=== PATIENT | male | born 1970 | race Caucasian/White ===

== ENCOUNTER 2021-08-18 12:25 | Outpatient (REF) | payer OTHER, SELFPAY ==
[2021-08-18 13:46] LABS: MANUAL DIFF FLAG NO
[2021-08-18 13:50] LABS: Basophils Absolute Auto 0.1 X10*3/uL (0.0-0.2); Basophils Percent Auto 1.1 % (0-2); Eosinophils Absolute Auto 0.2 X10*3/uL (0.0-0.4); Eosinophils Percent Auto 2.3 % (0-4); Hematocrit 46.9 % (42.0-52.0); Hemoglobin 15.7 g/dl (14.0-18.0); Imm Gran Abs Auto 0.03 X10*3/uL (0.00-0.03); Imm Gran Pct Auto 0.4 % (0.0-0.4); Lymphocytes Absolute Auto 2.2 X10*3/uL (1.2-4.9); Lymphocytes Percent Auto 26.6 % (20-40); Mean Corpuscular HGB Conc 33.5 g/dl (31.0-36.0); Mean Corpuscular Hemoglobin 31.1 pg (27.0-33.0); Mean Corpuscular Volume 92.9 fL (80.0-98.0); Monocytes Absolute Auto 0.8 X10*3/uL (0.1-1.2); Monocytes Percent Auto 10.1 % (2-11); Neutrophils Absolute Auto 4.8 x10*3/uL (2.0-8.3); Neutrophils Percent Auto 59.5 % (45-73); Platelet Count 309 X10*3/uL (160-400); Red Blood Count 5.05 X10*6/uL (4.60-5.80); Red Cell Distribution Width 13.3 % (11.0-16.0); White Blood Count 8.1 X10*3/uL (4.8-10.8)
[2021-08-18 14:31] LABS: Alanine Aminotransferase 26 U/L (0-40); Albumin Level 4.2 g/dL (3.5-5.0); Alkaline Phosphatase 72 U/L (39-117); Aspartate Amino Transferase 20 U/L (5-37); Bilirubin Total 0.4 mg/dL (0.0-1.0); Blood Urea Nitrogen 15 mg/dL (9-16); C Reactive Protein 0.14 mg/dL (< or = 0.50); Calcium 9.3 mg/dL (8.4-10.2); Cholesterol 196 mg/dL; Estimated Glomerular Filt Rate > 60; Glucose Random 87 mg/dL (60-115); Rheumatoid Factor < 15.0 IU/mL (<15.0)
[2021-08-18 14:48] LABS: Anion Gap 11 (12-20); Carbon Dioxide 26 mmol/L (22-29); Chloride 107 mmol/L (96-108); Potassium 4.5 mmol/L (3.3-5.1); Sodium 139 mmol/L (135-145)
[2021-08-23 17:22] LABS: Anti Nuclear Antibody Pattern Nuclear, Homogeneous; Anti Nuclear Antibody Screen POSITIVE (NEGATIVE); Anti Nuclear Antibody Titer 1:40 titer
== END 2021-08-18 12:26 | disposition home or self-care (01) ==
LOC: HO.10HDL 12:25
PROVIDERS: Visit Provider Internal Medicine
DX: L40.9 Psoriasis, unspecified (principal); M54.9 Dorsalgia, unspecified; R42 Dizziness and giddiness
CPT/HCPCS: 36415; 80053; 82465; 85025; 86038; 86039; 86140; 86431

== ENCOUNTER → 2022-12-02 14:42 | Outpatient (REF) | payer OTHER, SELFPAY ==
--- NOTE | 2022-12-02 14:50 | CA_ITS ---
Transthoracic Echocardiogram Patient (Last, First, Middle): Kam Campos, Gender: Male Date of : 1970 Age: 51 Procedure Date: 12/02/2022 Procedure Type: Transthoracic Echocardiogram Location: OP Height: 182.88 cm Weight: 70.31 kg BSA: 1.91 m2 Heart Rate: 69 bpm BP: 115 / 80 mmHg Flasher Adjuster: DEWEY/HEIKE Referring MD: Vignesh Ellington MD Symptoms: R94.31ABNORMAL EKG , Z86.79 PER HX OTHER DIS CIRC SYS, Z87.891 TOBACCO US Study Quality: Adequate ECG Rhythm: Sinus Conclusions: - The left ventricular systolic function is normal. The calculated ejection fraction is 61% by biplane method. - No obvious valvular pathology seen on this study. Findings Left Ventricle Normal left ventricular cavity size. There is normal left ventricular wall thickness. The left ventricular systolic function is normal. The calculated ejection fraction is 61% by biplane method. There is no evidence of regional wall motion abnormalities. Diastolic function is normal for age. LV peak GLS -17.6%. Right Ventricle Normal right ventricular cavity size and systolic function. Atria Both atria are normal in size. Aortic Valve There is a normal trileaflet aortic valve. There is no aortic valve stenosis. There is no aortic valve regurgitation. Mitral Valve The mitral valve appears normal. There is no mitral valve regurgitation. There is no mitral valve stenosis. Pulmonic Valve The pulmonic valve is likely normal. Tricuspid Valve Normal tricuspid valve structure. There is no tricuspid valve regurgitation. Tricuspid regurgitation envelope is inadequate for calculation of right ventricular systolic pressure. Great Vessels The aorta was not well visualized. The asc aorta is normal in size. Venous The inferior vena cava is normal in size and collapses greater than 50% with inspiration. Pericardium/Pleural There is no evidence of pericardial effusion. Prior Study Comparison No prior study available for comparison. Recommendations, Care & Conclusions No obvious valvular pathology seen on this study. Measurements 2D Linear Measurements IVSd: 0.80 0.6-0.9/0.6-1.0 cm LVIDd: 4.80 3.9-5.3/4.2-5.9 cm LVIDd Index: 2.51 2.4-3.2/2.2-3.1 cm/m2 LVIDs: 2.80 2.0-3.6 cm LVPWd: 0.70 0.7-1.1 cm LA Diam: 2.90 2.7-3.8/3.0-4.0 cm LAIDs Index: 1.52 1.5-2.3 cm/m2 LV Mass: 145.03 67-162/88-224 g LV Mass Index: 75.93 43-95/49-115 g/m2 LVOT Diam: 2.30 3.0+(-)1.3 cm 2D Systolic Function EF 4C: 63.40 >55% EF 2C: 60.90 >55% EF BiP: 61.10 >55% Mitral Valve MV Pk E: 0.88 MV PK A: 0.61 MV Decel Time: 199.00 E/A: 1.50 E'Lateral: 11.20 E'Medial: 8.49 E/E' Med: 10.40 E/E' Lat: 7.90 PHT: 58.00 MVA PHT: 3.79 Decel Arthur: 4.44 Aortic Valve AoV Pk Johnie: 1.13 AoV Pk Grad: 5.00 TERRELL: 3.49 LVOT LVOT Pk Johnie: 0.95 LVOT Mn Johnie: 0.67 LVOT VTI: 0.19 LVOT Pk Grad: 4.00 LVOT Mn Grad: 2.00 LVOT Diam: 2.30 LVOT Area: 4.15 Diastolic Function MV Pk E: 0.88 MV Pk A: 0.61 E/A: 1.50 E'Medial: 8.49 E/E' Med: 10.40 E' Laterial: 11.20 E/E' Lat: 7.90 Right Ventricle TAPSE (mm): 16.30 TVS' Johnie: 11.10 Tricuspid Valve RA Press: 3.00 Great Vessels Aorta Sinus of Valsalva: 3.50 2.0-3.5 cm Ao Asc: 3.80 2.1-3.4 cm Pulmonary Valve PV Pk Johnie: 0.94 Peak PV Grad: 4.00 Updated in Other Vendor System with Status of Final Abhishek Christie MD electronically signed on 12/03/2022 12:54:19 PM with status of Final
== END ==
LOC: HO.CARD 14:42
PROVIDERS: PCP Internal Medicine; Visit Provider Internal Medicine
DX: R94.31 Abnormal electrocardiogram [ECG] [EKG] (principal); Z86.79 Personal history of other diseases of the circulatory system; Z87.891 Personal history of nicotine dependence
CPT/HCPCS: 93306; 93356

== ENCOUNTER → 2022-12-02 14:50 | Outpatient (BNV) | payer OTHER, SELFPAY | PROVIDERS: PCP Internal Medicine; Visit Provider Internal Medicine | DX: R94.31 Abnormal electrocardiogram [ECG] [EKG] (principal) | CPT/HCPCS: 93306 ==

== ENCOUNTER 2023-12-23 11:16 | Emergency (ER) | payer OTHER, SELFPAY ==
--- NOTE | ~2023-12-23 | CT_ITS ---
EXAMINATION: CT ABDOMEN AND PELVIS WITHOUT CONTRAST CLINICAL INFORMATION: Right side/flank pain,r/o obstructive uropathy COMPARISON: None available. TECHNIQUE: Multidetector volumetric imaging was performed from the superior aspect of the liver through the pubic symphysis. Sagittal and coronal reformatted images were obtained on the technologist's workstation. This CT examination was performed using dose optimization techniques as appropriate, variously including the following: *Automated exposure control *Adjustment of mA and/or kV according to patient size (this includes techniques or standardized protocols for targeted exams where dose is matched to indication/reason for exam; i.e. extremities or head) *Use of iterative reconstruction technique DLP: 441 mGy-cm FINDINGS: LUNG BASES: Bibasilar atelectasis. LIVER, GALLBLADDER, AND BILIARY TREE: The liver is normal in size, shape, and attenuation. No focal hepatic lesion or biliary ductal dilatation is present. The gallbladder is unremarkable with no evidence of radiopaque gallstones, gallbladder wall thickening, or obvious pericholecystic inflammatory changes. PANCREAS: Unremarkable. SPLEEN: Unremarkable. ADRENAL GLANDS: Unremarkable. KIDNEYS AND URETERS: 4 mm obstructing calculus in the right ureterovesicular junction resulting in moderate right hydronephrosis. Additional nonobstructing bilateral renal calculi. The kidneys are normal in size, shape, and attenuation. BLADDER: Unremarkable. GASTROINTESTINAL TRACT: The small and large bowel are unremarkable. The appendix is unremarkable. ABDOMINAL WALL: Tiny fat-containing umbilical hernia. LYMPH NODES: Normal. VASCULAR: Mild scattered atherosclerosis of aorta and its branches. No abdominal aortic aneurysm. PELVIC VISCERA: Borderline enlarged prostate measures 4.8 cm in transverse. OSSEOUS STRUCTURES: Unremarkable. CT/CT abdomen pelvis wo IV con IMPRESSION: 4 mm obstructing calculus in the right ureterovesicular junction resulting in moderate right hydronephrosis. Additional nonobstructing bilateral renal calculi. Fleischner guidelines were followed. Electronically signed by: Dorothy Moreno MD 12/23/2023 03:36 PM EST
[2023-12-23 11:20] VITALS: BP 140/70; PULSE 64; O2SAT 98
[2023-12-23 11:25] VITALS: BP 134/76; PULSE 62; RESP 18; TEMP 36.4; O2SAT 96
--- NOTE | 2023-12-23 11:31 | MHC.EDTECH ---
Patient came by EMS, got changed over. Vitals and Hourly ED round completed, and Patient is resting quietly in the bed , call tate within reach.
[2023-12-23 11:33] VITALS: BP 174/76; PULSE 62; RESP 18; TEMP 36.4; O2SAT 96; BMI 23.5
[2023-12-23 11:53] LABS: MANUAL DIFF FLAG NO
[2023-12-23 12:02] LABS: Basophils Absolute Auto 0.1 X10*3/uL (0.0-0.2); Basophils Percent Auto 0.7 % (0-2); Eosinophils Absolute Auto 0.1 X10*3/uL (0.0-0.4); Eosinophils Percent Auto 1.4 % (0-4); Hematocrit 46.2 % (42.0-52.0); Hemoglobin 16.5 g/dl (14.0-18.0); Imm Gran Abs Auto 0.02 X10*3/uL (0.00-0.03); Imm Gran Pct Auto 0.2 % (0.0-0.4); Lymphocytes Absolute Auto 3.2 X10*3/uL (1.2-4.9); Lymphocytes Percent Auto 38.7 % (20-40); Mean Corpuscular HGB Conc 35.7 g/dl (31.0-36.0); Mean Corpuscular Hemoglobin 30.6 pg (27.0-33.0); Mean Corpuscular Volume 85.6 fL (80.0-98.0); Mean Platelet Volume 9.7 fL (9.4-12.4); Monocytes Absolute Auto 1.1 X10*3/uL (0.1-1.2); Monocytes Percent Auto 13.1 % (2-11); Neutrophils Absolute Auto 3.8 x10*3/uL (2.0-8.3); Neutrophils Percent Auto 45.9 % (45-73); Platelet Count 248 X10*3/uL (160-400); Red Cell Distribution Width 13.3 % (11.0-16.0); White Blood Count 8.3 X10*3/uL (4.8-10.8)
--- NOTE | 2023-12-23 12:06 | ED_ITS ---
HPI - General Adult General Chief complaint: General Medical Stated complaint: R SIDED FLANK PAIN ABD PAIN Time Seen by Provider: 12/23/23 11:55 Source: patient and EMS Mode of arrival: EMS Limitations: no limitations History of Present Illness ED Provider: DR. Naik HPI narrative: 52-year-old male history of kidney stone presented with right-sided abdominal pain and right flank pain for the past 2 weeks was seen and evaluated at [facility] but left before complete treatment, otherwise no fever, no chills, no dysuria, no frequency urination, no blood in the urine, last bowel movement was this morning and with normal, passing flatus normally, had a history of kidney stones in the past which is similar to his pain currently. No history of intra- abdominal surgery. Related Data Previous Rx's ?Medication ?Instructions ?Recorded oxycodone 5 mg tablet 5 mg PO Q8H PRN pain #10 tabs 12/23/23 prednisone 20 mg tablet 20 mg PO BID #10 tabs 12/23/23 tamsulosin 0.4 mg capsule (Flomax) 0.4 mg PO BEDTIME #6 caps 12/23/23 Allergies Allergy/AdvReac Type Severity Reaction Status Date / Time No Known Allergies Allergy Verified 12/23/23 11:35 Review of Systems 2 Review of Systems: All other systems are reviewed and are negative Constitutional: Reports as per HPI and Reports no additional constitutional complaints Eyes: Reports as per HPI and Reports no additional eye complaints Reports system reviewed and no additional complaints, except as documented Cardiovascular: Reports as per HPI and Reports no additional cardiovascular complaints Respiratory: Reports as per HPI and Reports no additional respiratory complaints Gastrointestinal: Reports as per HPI and Reports no additional gastrointestinal complaints Genitourinary: Reports no additional female genitourinary complaints Musculoskeletal: Reports no additional musculoskeletal complaints Skin/Breast: Reports system reviewed and no additional complaints, except as docu Psychiatric: Reports no additional psychiatric complaints Endocrine: Reports no additional endocrine complaints Hematologic/Lymphatic: Reports no additional hematologic/lymphatic complaints Allergic/Immunologic: Reports no additional allergic/immunologic complaints Reports system reviewed and no additional complaints, except as documented and Reports Abnormal speech present [facility] [place] Social History Social History Advance Directives: No Advance Directives Information Provided: No Physical Exam ED Vital Signs: Vital Signs - 24 hr 12/23/23 11:25 12/23/23 11:33 12/23/23 12:44 Temperature 97.5 F 97.5 F 98.3 F Pulse Rate 62 62 67 Respiratory Rate 18 18 18 Blood Pressure 134/76 174/76 H 127/71 Pulse Oximetry 96 96 97 Oxygen Delivery Method Room Air Room Air Room Air BMI result Body Mass Index 23.5 Vital signs have been reviewed and appear to be correct. Blood pressure elevated. Heart rate normal. Respiratory rate normal. Temperature normal. Oxygen saturation normal. Appearance: Alert. Oriented X3. No acute distress. Head: Normal external exam. Normocephalic. Atraumatic. No Mena signs noted. No raccoon eyes noted Eyes: PERRLA. EOMI. Conjunctiva and sclera normal. Eyelids normal. ENT: TM's Normal. Pharynx normal. Uvula midline. Moist mucous membranes. No trismus noted. No drooling noted. No muffled voice noted. Neck: Normal inspection. Neck supple. FROM. No adenopathy. Thyroid Normal. No meningeal signs. No neck mass noted. CVS: Normal heart rate and rhythm. Heart sound normal. No murmurs noted. Pulses normal throughout. Respiratory: No respiratory distress. Painless inspiration. Breath sounds normal. No wheezes/rales/rhonchi noted. Chest nontender. No accessory muscle usage noted or decreased air movement noted. Abdomen: Soft and nontender. Bowel sounds normal in all 4 quadrants. No distention noted. No organomegaly noted. No visible injury noted. Back: No CVA tenderness. Full range of motion noted. Skin: Skin warm and dry. Normal skin color. Normal skin turgor. No rashes/lesions/lacerations noted. Extremities: No lower extremity edema. Extremities exhibit normal range of motion. Extremities nontender. Neuro: Oriented X 3. Cranial nerve exam: II-XII are grossly intact No motor deficit. No sensory deficit. Reflexes normal. Course Reevaluation(s) Reevaluation #1: right flank/right lower abdominal pain due to 4 mm obstructing right ureteric stone revealed on CT of the abdomen pelvis, will start the patient on oxycodone/ Flomax/ prednisone and follow-up with Dr. Meyer the plan was discussed with the patient. Time: 15:56 Medications Administered Discontinued Medications Generic Name Dose Route Start Last Admin Trade Name Freq PRN Reason Stop Dose Admin Sodium Chloride 1,000 mls @ 999 mls/hr 12/23/23 12:04 12/23/23 13:40 Ns IV 12/23/23 13:04 Infused .Q1H1M ONE Infusion Ketorolac Tromethamine 15 mg 12/23/23 12:04 12/23/23 12:10 Ketorolac Tromethamine 15 Mg/Ml Vial IVPUSH 12/23/23 12:05 Not Given ONCE ONE Morphine Sulfate 2 mg 12/23/23 12:04 12/23/23 12:13 Morphine Sulfate 2 Mg/Ml Cartridge IVPUSH 12/23/23 12:05 2 mg ONCE ONE Administration Protocol Ondansetron HCl 4 mg 12/23/23 12:18 12/23/23 12:33 Ondansetron Hcl 4 Mg/2 Ml Vial IVPUSH 12/23/23 12:19 4 mg ONCE ONE Administration Medical Decision Making Differential Diagnosis Differential Diagnoses: The differential diagnosis associated with the presentation includes ( obstructive ureteric stone, UTI, pyelonephritis, acute pancreatitis, acute appendicitis, acute colitis, acute diverticulitis, electrolyte derangement, severe anemia.) Admission/Observation Consideration of admission/observation: Escalation of care including admission/observation considered Lab Data MDM Lab Attestation statement: I reviewed the patient's lab results. 12/23/23 11:49 12/23/23 11:49 Labs: Lab Results 12/23/23 12/23/23 Range/Units 11:49 13:42 WBC 8.3 (4.8-10.8) X10*3/uL RBC 5.40 (4.60-5.80) X10*6/uL Hgb 16.5 (14.0-18.0) g/dl Hct 46.2 (42.0-52.0) % MCV 85.6 (80.0-98.0) fL MCH 30.6 (27.0-33.0) pg MCHC 35.7 (31.0-36.0) g/dl RDW 13.3 (11.0-16.0) % Plt Count 248 (160-400) X10*3/uL MPV 9.7 (9.4-12.4) fL Immature Gran % (Auto) 0.2 (0.0-0.4) % Neut % (Auto) 45.9 (45-73) % Lymph % (Auto) 38.7 (20-40) % [place] % (Auto) 13.1 H (2-11) % Eos % (Auto) 1.4 (0-4) % Baso % (Auto) 0.7 (0-2) % Lymph # (Auto) 3.2 (1.2-4.9) X10*3/uL [place] # (Auto) 1.1 (0.1-1.2) X10*3/uL Eos # (Auto) 0.1 (0.0-0.4) X10*3/uL Baso # (Auto) 0.1 (0.0-0.2) X10*3/uL Abs Immat Gran (auto) 0.02 (0.00-0.03) X10*3/uL Absolute Neuts (auto) 3.8 (2.0-8.3) x10*3/uL Absolute Nucleated RBC 0.000 (0.0-0.012) X10*3/uL Nucleated RBC % (auto) 0.0 (0.0-0.2) /100WBC Sodium 141 (135-145) mmol/L Potassium 3.4 (3.3-5.1) mmol/L Chloride 110 H (96-108) mmol/L Carbon Dioxide 20 L (22-29) mmol/L Anion Gap 14 (12-20) BUN 16 (9-16) mg/dL Creatinine 1.19 (0.5-1.4) mg/dL Estim Creat Clear Calc 79.7 Estimated GFR > 60 Random Glucose 97 (60-115) mg/dL Calcium 9.1 (8.4-10.2) mg/dL Total Bilirubin 0.9 (0.0-1.0) mg/dL AST 29 (5-37) U/L ALT 31 (0-40) U/L Alkaline Phosphatase 59 (39-117) U/L Total Protein 6.8 (6.5-8.0) g/dL Albumin 4.0 (3.5-5.0) g/dL Urine Color Yellow Urine Appearance Clear Urine pH 6.0 (5.0-9.0) Ur Specific Ruffin <= 1.005 (1.005-1.025) Urine Protein Negative (Neg-Trace) mg/dL Urine Glucose (UA) Negative (Negative) mg/dL Urine Ketones Negative (Negative) mg/dL Urine Blood Negative (Negative) Urine Nitrite Negative (Negative) Ur Leukocyte Esterase Negative (Negative) Urine RBC 0-2 (0-2) /HPF Urine WBC 0-5 (0-5) /HPF Ur Squamous Epith Cells 0-2 (0-2) /HPF Urine Bacteria None Seen (None Seen) Hyaline Casts 0-2 (0-2) /LPF Independent Interpretation I performed an independent interpretation of an: CT Scan ( Abdomen pelvis:4 mm obstructing calculus in the right ureterovesicular junction resulting in moderate right hydronephrosis. Additional nonobstructing bilateral renal calculi. ) Radiology Impression Discussion of test interpretation with radiology: I have reviewed the radiologist's reading. Discharge Plan Discharge Clinical Impression: Ureteric calculus Patient Disposition: Home, Self-Care Instructions: Kidney Stones (ED) Prescriptions: New oxycodone 5 mg tablet 5 mg PO Q8H PRN (Reason: pain) Qty: 10 0RF Rx Instructions: Partial Fill upon patient request. tamsulosin [Flomax] 0.4 mg capsule 0.4 mg PO BEDTIME Qty: 6 0RF prednisone 20 mg tablet 20 mg PO BID Qty: 10 0RF Referrals: You Meyer MD [Physician] - Vignesh Ellington MD [Primary Care Provider] - Print Language: Fijian
[2023-12-23 12:08] LABS: Alanine Aminotransferase 31 U/L (0-40); Alkaline Phosphatase 59 U/L (39-117); Anion Gap 14 (12-20); Aspartate Amino Transferase 29 U/L (5-37); Bilirubin Total 0.9 mg/dL (0.0-1.0); Blood Urea Nitrogen 16 mg/dL (9-16); Calcium 9.1 mg/dL (8.4-10.2); Carbon Dioxide 20 mmol/L (22-29); Chloride 110 mmol/L (96-108); Creatinine Clr Calc Pharmacy 79.7; Estimated Glomerular Filt Rate > 60; Glucose Random 97 mg/dL (60-115); Potassium 3.4 mmol/L (3.3-5.1); Sodium 141 mmol/L (135-145); Total Protein 6.8 g/dL (6.5-8.0)
[2023-12-23] MEDS: 0.9 % Sodium Chloride 1,000 ML 999 ML IV (12:12)
[2023-12-23] MEDS: Morphine Sulfate 2 MG/ML CARTRIDGE IVPUSH (12:13)
[2023-12-23] MEDS: ondansetron HCL 4 MG/2 ML VIAL IVPUSH (12:33)
[2023-12-23 12:44] VITALS: BP 127/71; PULSE 67; RESP 18; TEMP 36.8; O2SAT 97
[2023-12-23 13:51] LABS: Appearance Urine Clear; Color Urine Yellow; Glucose Urine UA Negative (Negative); Leukocyte Esterase Urine Negative (Negative); Nitrite Urine Negative (Negative); Specific Gravity - Urine <= 1.005 (1.005-1.025); Urine Blood Negative (Negative); Urine Ketones Negative (Negative); Urine Protein Negative (Neg-Trace)
[2023-12-23 13:56] LABS: Bacteria Urine None Seen (None Seen); Hyaline Casts Urine 0-2 /LPF (0-2); RBC Urine 0-2 /HPF (0-2); Squamous Epithelial Cell Urine 0-2 /HPF (0-2); WBC Urine 0-5 /HPF (0-5)
[2023-12-23 16:17] VITALS: BP 127/71; PULSE 67; RESP 18; TEMP 36.8; O2SAT 97
[2023-12-23] MEDS: oxyCODONE HCl Immed Release 5 MG TABLET PO (16:20)
== END 2023-12-23 16:26 | disposition home or self-care (01) ==
PROVIDERS: Emergency Provider Emergency Medicine; PCP Internal Medicine
DX: N13.2 Hydronephrosis with renal and ureteral calculous obstruction (principal); R10.9 Unspecified abdominal pain; Z87.442 Personal history of urinary calculi
CPT/HCPCS: 36415; 74176; 80053; 81001; 85025; 96361; 96374; 96375; 99284; J2270; J2405

== ENCOUNTER 2024-01-14 18:51 | Emergency (ER) | payer OTHER, SELFPAY ==
--- NOTE | ~2024-01-14 | XR_ITS ---
EXAMINATION: XR CHEST CLINICAL INFORMATION: back pain COMPARISON: Chest x-ray November 23, 2018. CT chest May 03, 2017 TECHNIQUE: 2 views of the chest were obtained. FINDINGS: Emphysematous changes of lungs. This is most severe at the right lung apex. No acute airspace disease. No pulmonary vascular congestion. No pleural effusion and no pneumothorax. Heart size is normal. Cardiac and mediastinal contours are normal. XR/XR chest 2V IMPRESSION: 1. No acute abnormality of chest. 2. Emphysematous changes of lungs. Electronically signed by: Alejandro Shukla MD 01/14/2024 10:00 PM [facility]
--- NOTE | 2024-01-14 18:54 | ED.GENADULT ---
HPI - General Adult General Chief complaint: Back Pain/Injury Stated complaint: sob, back pain Time Seen by Provider: 01/14/24 19:47 Source: patient Mode of arrival: ambulatory Limitations: no limitations History of Present Illness ED Provider: HPI narrative: Patient's history of back spasms with history of same in the past no history of trauma was seen here on 12/23/[address] scan was negative at that time comes here having the spasm in the back off and on for last 2 weeks patient has had kidney stone which he passed on 12/28 pain is diffuse in the bacvk wrapping to the front no weakness of lower extremity no abdominal pain Related Data Previous Rx's ?Medication ?Instructions ?Recorded oxycodone 5 mg tablet 5 mg PO Q8H PRN pain #10 tabs 12/23/23 prednisone 20 mg tablet 20 mg PO BID #10 tabs 12/23/23 tamsulosin 0.4 mg capsule (Flomax) 0.4 mg PO BEDTIME #6 caps 12/23/23 cyclobenzaprine 10 mg tablet 10 mg PO Q8H #20 tabs 01/14/24 oxycodone 5 mg tablet 5 mg PO Q6H PRN pain #20 tabs 01/14/24 Allergies Allergy/AdvReac Type Severity Reaction Status Date / Time No Known Allergies Allergy Verified 01/14/24 19:06 Review of Systems Review of Systems: Yes all other systems are reviewed and are negative [facility] Social History Social History Smoked in Last 30 Days: No Substance Use Type: Marijuana Advance Directives: No Advance Directives Information Provided: No Do you have a plan to hurt others: No Plan Physical Exam ED Vital Signs: Vital Signs - 24 hr 01/14/24 19:03 01/14/24 21:10 01/14/24 23:36 Temperature 97.5 F 97.5 F 98.7 F Pulse Rate 67 65 59 Respiratory Rate 22 H 16 16 Blood Pressure 129/82 133/70 135/84 Pulse Oximetry 96 95 95 Oxygen Delivery Method Room Air Room Air Room Air 01/14/24 23:39 Temperature 98.7 F Pulse Rate 59 Respiratory Rate 16 Blood Pressure 135/84 Pulse Oximetry 95 Oxygen Delivery Method Room Air BMI result Body Mass Index 22.4 Appearance: Alert. Oriented X3. No acute distress. Eyes: PERRLA, No Nystagmus ENT: Pharynx normal. Oral Mucosa moist Neck: Normal inspection. Neck supple. CVS: Normal heart rate and rhythm. Pulses normal. Respiratory: No respiratory distress. Equal air entry bilateral, no wheezing/rales/rhonchi Abdomen: Soft and nontender. Bowel sounds are present, no mass palpable, no CVA tenderness Skin: Skin warm and dry. Normal skin color. Normal skin turgor. Extremities: No lower extremity edema. No calf tenderness back; no spinal tenderness spasm paralumbar spinal area Neuro: Oriented X 3. No motor deficit. No sensory deficit.No cerebellar signs , cranial nerves II-XII intact Course Course Course Narrative: RME performed by Jane Terry PA-C. Patient is a 53 year old assigned male at presenting to the emergency department with mid back pain. Patient states that he was seen here on 12/23/2023 for mid back pain and was found to have a kidney stone. Patient states that he has passed the stone and he continues to have back pain. Patient states that the pain is especially worse when trying to take a breath or touching the muscles. Detailed physical exam and review of systems are deferred to the key filer. EKG, labs, imaging, and swabs ordered. Patient placed back in the waiting room pending room availability and results. Patient was seen and dispositioned by Dr. Garcia who wrote a separate note. Please refer to his encounter from 01/15/2024. Medications Administered Discontinued Medications Generic Name Dose Route Start Last Admin Trade Name Freq PRN Reason Stop Dose Admin Cyclobenzaprine HCl 10 mg 01/14/24 22:31 01/14/24 22:54 Cyclobenzaprine Hcl 10 Mg Tablet PO 01/14/24 22:32 10 mg ONCE ONE Administration Ketorolac Tromethamine 60 mg 01/14/24 22:31 01/14/24 22:54 Ketorolac Tromethamine 60 Mg/2 Ml Vial IM 01/14/24 22:32 60 mg ONCE ONE Administration Morphine Sulfate 15 mg 01/14/24 19:55 01/14/24 20:14 Morphine Sulfate Immed Release 15 Mg Tablet PO 01/14/24 19:56 15 mg ONCE ONE Administration Oxycodone HCl 10 mg 01/14/24 22:31 01/14/24 22:54 Oxycodone Hcl Immed Release 5 Mg Tablet PO 01/14/24 22:32 10 mg ONCE ONE Administration Medical Decision Making Medical Decision Making [facility] Narrative: Patient with lower back spasm improved after pain medication no neuro deficits discharged home on muscle relaxer Lab Data [facility] Lab Attestation statement: I reviewed the patient's lab results. 01/14/24 19:29 01/14/24 19:29 Labs: Lab Results 01/14/24 Range/Units 19:29 WBC 8.1 (4.8-10.8) X10*3/uL RBC 5.67 (4.60-5.80) X10*6/uL Hgb 17.1 (14.0-18.0) g/dl Hct 48.4 (42.0-52.0) % MCV 85.4 (80.0-98.0) fL MCH 30.2 (27.0-33.0) pg MCHC 35.3 (31.0-36.0) g/dl RDW 12.8 (11.0-16.0) % Plt Count 277 (160-400) X10*3/uL MPV 9.4 (9.4-12.4) fL Immature Gran % (Auto) 0.4 (0.0-0.4) % Neut % (Auto) 54.3 (45-73) % Lymph % (Auto) 33.6 (20-40) % [place] % (Auto) 9.1 (2-11) % Eos % (Auto) 1.6 (0-4) % Baso % (Auto) 1.0 (0-2) % Lymph # (Auto) 2.7 (1.2-4.9) X10*3/uL [place] # (Auto) 0.7 (0.1-1.2) X10*3/uL Eos # (Auto) 0.1 (0.0-0.4) X10*3/uL Baso # (Auto) 0.1 (0.0-0.2) X10*3/uL Abs Immat Gran (auto) 0.03 (0.00-0.03) X10*3/uL Absolute Neuts (auto) 4.4 (2.0-8.3) x10*3/uL Absolute Nucleated RBC 0.000 (0.0-0.012) X10*3/uL Nucleated RBC % (auto) 0.0 (0.0-0.2) /100WBC PT 11.1 (10.9-12.4) SEC INR 1.0 (0.9-1.1) APTT 32.1 (26.0-36.8) SEC Sodium 139 (135-145) mmol/L Potassium 4.2 D (3.3-5.1) mmol/L Chloride 109 H (96-108) mmol/L Carbon Dioxide 18 L (22-29) mmol/L Anion Gap 16 (12-20) BUN 21 H (9-16) mg/dL Creatinine 1.33 (0.5-1.4) mg/dL Estim Creat Clear Calc 67.9 Estimated GFR 56 Random Glucose 95 (60-115) mg/dL Calcium 9.7 D (8.4-10.2) mg/dL Magnesium 1.8 (1.6-2.6) mg/dL Total Bilirubin 0.9 (0.0-1.0) mg/dL AST 27 (5-37) U/L ALT 31 (0-40) U/L Alkaline Phosphatase 67 (39-117) U/L Troponin I High Sens < 2.7 (<3.5-35.0) ng/L Total Protein 7.2 (6.5-8.0) g/dL Albumin 4.3 (3.5-5.0) g/dL Influenza Type A (PCR) NEGATIVE (Negative) Influenza Type B (PCR) NEGATIVE (Negative) RSV RNA Qual (PCR) NEGATIVE (Negative) SARS-CoV-2 RNA (RT-PCR) NEGATIVE (Negative) Discharge Plan Discharge Clinical Impression: Thoracic back pain Patient Disposition: Home, Self-Care Instructions: Thoracic Pain (ED) Additional Instructions: Take pain medication and muscle relaxant as prescribed Follow with your PCP Prescriptions: New cyclobenzaprine 10 mg tablet 10 mg PO Q8H Qty: 20 0RF oxycodone 5 mg tablet 5 mg PO Q6H PRN (Reason: pain) Qty: 20 0RF Rx Instructions: Partial Fill upon patient request. No Action oxycodone 5 mg tablet 5 mg PO Q8H PRN (Reason: pain) Qty: 10 0RF Rx Instructions: Partial Fill upon patient request. tamsulosin [Flomax] 0.4 mg capsule 0.4 mg PO BEDTIME Qty: 6 0RF prednisone 20 mg tablet 20 mg PO BID Qty: 10 0RF Interventions: ED Discharge Assessment Last Done: 01/14/24 23:39 Discharge Date/Time: 01/14/24 23:39 Print Language: Salvadorean
--- NOTE | 2024-01-14 18:56 | ECG_ITS ---
Test Reason : CHEST PAIN Blood Pressure : / mmHG Vent. Rate : 067 BPM Atrial Rate : 067 BPM P-R Int : 132 ms QRS Dur : 100 ms QT Int : 402 ms P-R-T Axes : 077 082 064 degrees QTc Int : 424 ms Normal sinus rhythm Normal ECG No previous ECGs available Referred By: Jane Terry Electronically Signed By:Maico Shankar
[2024-01-14 19:03] VITALS: BP 129/82; PULSE 67; RESP 22; TEMP 36.4; O2SAT 96; BMI 22.4
[2024-01-14 19:33] LABS: MANUAL DIFF FLAG NO
[2024-01-14 19:35] LABS: Basophils Absolute Auto 0.1 X10*3/uL (0.0-0.2); Eosinophils Absolute Auto 0.1 X10*3/uL (0.0-0.4); Eosinophils Percent Auto 1.6 % (0-4); Hematocrit 48.4 % (42.0-52.0); Hemoglobin 17.1 g/dl (14.0-18.0); Imm Gran Abs Auto 0.03 X10*3/uL (0.00-0.03); Imm Gran Pct Auto 0.4 % (0.0-0.4); Lymphocytes Absolute Auto 2.7 X10*3/uL (1.2-4.9); Lymphocytes Percent Auto 33.6 % (20-40); Mean Corpuscular HGB Conc 35.3 g/dl (31.0-36.0); Mean Corpuscular Hemoglobin 30.2 pg (27.0-33.0); Mean Corpuscular Volume 85.4 fL (80.0-98.0); Mean Platelet Volume 9.4 fL (9.4-12.4); Monocytes Absolute Auto 0.7 X10*3/uL (0.1-1.2); Monocytes Percent Auto 9.1 % (2-11); Neutrophils Absolute Auto 4.4 x10*3/uL (2.0-8.3); Neutrophils Percent Auto 54.3 % (45-73); Platelet Count 277 X10*3/uL (160-400); Red Blood Count 5.67 X10*6/uL (4.60-5.80); Red Cell Distribution Width 12.8 % (11.0-16.0); White Blood Count 8.1 X10*3/uL (4.8-10.8)
[2024-01-14 19:40] LABS: Prothrombin Time 11.1 SEC (10.9-12.4)
[2024-01-14 19:43] LABS: Partial Thromboplastin Time 32.1 SEC (26.0-36.8)
[2024-01-14 19:51] LABS: Alanine Aminotransferase 31 U/L (0-40); Albumin Level 4.3 g/dL (3.5-5.0); Alkaline Phosphatase 67 U/L (39-117); Anion Gap 16 (12-20); Aspartate Amino Transferase 27 U/L (5-37); Bilirubin Total 0.9 mg/dL (0.0-1.0); Blood Urea Nitrogen 21 mg/dL (9-16); Calcium 9.7 mg/dL (8.4-10.2); Carbon Dioxide 18 mmol/L (22-29); Chloride 109 mmol/L (96-108); Creatinine Clr Calc Pharmacy 67.9; Estimated Glomerular Filt Rate 56; Glucose Random 95 mg/dL (60-115); Magnesium 1.8 mg/dL (1.6-2.6); Potassium 4.2 mmol/L (3.3-5.1); Sodium 139 mmol/L (135-145); Total Protein 7.2 g/dL (6.5-8.0)
[2024-01-14 19:59] LABS: Troponin-I High Sensitivity < 2.7 ng/L (<3.5-35.0)
[2024-01-14 20:10] LABS: Influenza A PCR NEGATIVE (Negative); Influenza B PCR NEGATIVE (Negative); Resp Syncy Virus RNA Qual PCR NEGATIVE (Negative); SARS COV2 PCR INHOUSE NEGATIVE (Negative)
[2024-01-14] MEDS: Morphine Sulfate Immed Release 15 MG TABLET PO (20:14)
[2024-01-14 21:10] VITALS: BP 133/70; PULSE 65; RESP 16; TEMP 36.4; O2SAT 95
[2024-01-14] MEDS: Ketorolac Tromethamine 60 MG/2 ML VIAL IM (22:54)
[2024-01-14] MEDS: oxyCODONE HCl Immed Release 5 MG TABLET 10 MG PO (22:54)
[2024-01-14] MEDS: Cyclobenzaprine HCl 10 MG TABLET PO (22:54)
--- NOTE | 2024-01-14 23:32 | ED.BACK ---
HPI - Back Pain/Injury General Chief Complaint: Back Pain/Injury Stated Complaint: sob, back pain Time Seen by Provider: 01/14/24 19:47 Source: patient Mode of arrival: ambulatory Limitations: no limitations History of Present Illness ED Provider: HPI Narrative: Patient with with history of back spasms in the past also has a history of kidney stone with a diagnose on 12/22 as the stone on 15 since 29 of December noticed pain in the upper back between the scapular area similar to that in the past no relation with bleeding no chest pain no shortness a breath no hematuria no flank pain Related Data Previous Rx's ?Medication ?Instructions ?Recorded oxycodone 5 mg tablet 5 mg PO Q8H PRN pain #10 tabs 12/23/23 prednisone 20 mg tablet 20 mg PO BID #10 tabs 12/23/23 tamsulosin 0.4 mg capsule (Flomax) 0.4 mg PO BEDTIME #6 caps 12/23/23 cyclobenzaprine 10 mg tablet 10 mg PO Q8H #20 tabs 01/14/24 oxycodone 5 mg tablet 5 mg PO Q6H PRN pain #20 tabs 01/14/24 Allergies Allergy/AdvReac Type Severity Reaction Status Date / Time No Known Allergies Allergy Verified 01/14/24 19:06 Review of Systems Review of Systems: Yes all other systems are reviewed and are negative [facility], [facility] Social History Social History Smoked in Last 30 Days: No Substance Use Type: Marijuana Advance Directives: No Advance Directives Information Provided: No Do you have a plan to hurt others: No Plan Physical Exam Vital Signs: Vital Signs: Last Vital Signs Temp 97.5 F 01/14/24 21:10 Pulse 65 01/14/24 21:10 Resp 16 01/14/24 21:10 BP 133/70 01/14/24 21:10 Pulse Ox 95 01/14/24 21:10 O2 Del Method Room Air 01/14/24 21:10 BMI result Body Mass Index 22.4 Appearance: Alert. Oriented X3. No acute distress. Eyes: PERRLA, No Nystagmus ENT: Pharynx normal. Oral Mucosa moist Neck: Normal inspection. Neck supple. CVS: Normal heart rate and rhythm. Pulses normal. Respiratory: No respiratory distress. Equal air entry bilateral, no wheezing/rales/rhonchi Abdomen: Soft and nontender. Bowel sounds are present, no mass palpable, no CVA tenderness Skin: Skin warm and dry. Normal skin color. Normal skin turgor. bacK: Diffuse tenderness in the rhomboids area bilaterally Extremities: No lower extremity edema. No calf tenderness Neuro: Oriented X 3. No motor deficit. No sensory deficit.No cerebellar signs , cranial nerves II-XII intact Medications Administered Discontinued Medications Generic Name Dose Route Start Last Admin Trade Name Larryq PRN Reason Stop Dose Admin Cyclobenzaprine HCl 10 mg 01/14/24 22:31 01/14/24 22:54 Cyclobenzaprine Hcl 10 Mg Tablet PO 01/14/24 22:32 10 mg ONCE ONE Administration Ketorolac Tromethamine 60 mg 01/14/24 22:31 01/14/24 22:54 Ketorolac Tromethamine 60 Mg/2 Ml Vial IM 01/14/24 22:32 60 mg ONCE ONE Administration Morphine Sulfate 15 mg 01/14/24 19:55 01/14/24 20:14 Morphine Sulfate Immed Release 15 Mg Tablet PO 01/14/24 19:56 15 mg ONCE ONE Administration Oxycodone HCl 10 mg 01/14/24 22:31 01/14/24 22:54 Oxycodone Hcl Immed Release 5 Mg Tablet PO 01/14/24 22:32 10 mg ONCE ONE Administration Medical Decision Making Medical Decision Making [facility] Narrative: Patient's upper back spasm clinically muscular pain no midline tenderness no trauma urine negative for blood patient is already passed the kidney stone chest x-ray negative will discharge patient home patient improved after pain medication Lab Data [facility] Lab Attestation statement: I reviewed the patient's lab results. 01/14/24 19:29 01/14/24 19:29 Labs: Lab Results 01/14/24 Range/Units 19:29 WBC 8.1 (4.8-10.8) X10*3/uL RBC 5.67 (4.60-5.80) X10*6/uL Hgb 17.1 (14.0-18.0) g/dl Hct 48.4 (42.0-52.0) % MCV 85.4 (80.0-98.0) fL MCH 30.2 (27.0-33.0) pg MCHC 35.3 (31.0-36.0) g/dl RDW 12.8 (11.0-16.0) % Plt Count 277 (160-400) X10*3/uL MPV 9.4 (9.4-12.4) fL Immature Gran % (Auto) 0.4 (0.0-0.4) % Neut % (Auto) 54.3 (45-73) % Lymph % (Auto) 33.6 (20-40) % [place] % (Auto) 9.1 (2-11) % Eos % (Auto) 1.6 (0-4) % Baso % (Auto) 1.0 (0-2) % Lymph # (Auto) 2.7 (1.2-4.9) X10*3/uL [place] # (Auto) 0.7 (0.1-1.2) X10*3/uL Eos # (Auto) 0.1 (0.0-0.4) X10*3/uL Baso # (Auto) 0.1 (0.0-0.2) X10*3/uL Abs Immat Gran (auto) 0.03 (0.00-0.03) X10*3/uL Absolute Neuts (auto) 4.4 (2.0-8.3) x10*3/uL Absolute Nucleated RBC 0.000 (0.0-0.012) X10*3/uL Nucleated RBC % (auto) 0.0 (0.0-0.2) /100WBC PT 11.1 (10.9-12.4) SEC INR 1.0 (0.9-1.1) APTT 32.1 (26.0-36.8) SEC Sodium 139 (135-145) mmol/L Potassium 4.2 D (3.3-5.1) mmol/L Chloride 109 H (96-108) mmol/L Carbon Dioxide 18 L (22-29) mmol/L Anion Gap 16 (12-20) BUN 21 H (9-16) mg/dL Creatinine 1.33 (0.5-1.4) mg/dL Estim Creat Clear Calc 67.9 Estimated GFR 56 Random Glucose 95 (60-115) mg/dL Calcium 9.7 D (8.4-10.2) mg/dL Magnesium 1.8 (1.6-2.6) mg/dL Total Bilirubin 0.9 (0.0-1.0) mg/dL AST 27 (5-37) U/L ALT 31 (0-40) U/L Alkaline Phosphatase 67 (39-117) U/L Troponin I High Sens < 2.7 (<3.5-35.0) ng/L Total Protein 7.2 (6.5-8.0) g/dL Albumin 4.3 (3.5-5.0) g/dL Influenza Type A (PCR) NEGATIVE (Negative) Influenza Type B (PCR) NEGATIVE (Negative) RSV RNA Qual (PCR) NEGATIVE (Negative) SARS-CoV-2 RNA (RT-PCR) NEGATIVE (Negative) Independent Interpretation I performed an independent interpretation of an: EKG Interpretation: Normal sinus rhythm heart rate 67 beats per minute normal intervals normal axis no acute ST-T changes no acute ischemia Radiology Impression Discussion of test interpretation with radiology: I have reviewed the radiologist's reading. Radiologist Impression: [place] [id number] XRay Report Signed Patient: Kam Campos MR#: [id number] : 1970 Acct:[id number] Age/Sex: 53 / M ADM Date: 01/14/24 Loc: .ED Attending Dr: Ordering Physician: Bishnu Garcia MD Date of Service: 01/14/24 Procedure(s): XR chest 2V Accession Number(s): [id number] cc: Vignesh Ellington MD; Bishnu Garcia MD~ EXAMINATION: XR CHEST CLINICAL INFORMATION: back pain COMPARISON: Chest x-ray November 23, 2018. CT chest May 03, 2017 TECHNIQUE: 2 views of the chest were obtained. FINDINGS: Emphysematous changes of lungs. This is most severe at the right lung apex. No acute airspace disease. No pulmonary vascular congestion. No pleural effusion and no pneumothorax. Heart size is normal. Cardiac and mediastinal contours are normal. XR/XR chest 2V IMPRESSION: 1. No acute abnormality of chest. 2. Emphysematous changes of lungs. Electronically signed by: Alejandro Shukla MD 01/14/2024 10:00 PM [facility] Discharge Plan Discharge Clinical Impression: Thoracic back pain Patient Disposition: Home, Self-Care Instructions: Thoracic Pain (ED) Additional Instructions: Take pain medication and muscle relaxant as prescribed Follow with your PCP Prescriptions: New cyclobenzaprine 10 mg tablet 10 mg PO Q8H Qty: 20 0RF oxycodone 5 mg tablet 5 mg PO Q6H PRN (Reason: pain) Qty: 20 0RF Rx Instructions: Partial Fill upon patient request. No Action oxycodone 5 mg tablet 5 mg PO Q8H PRN (Reason: pain) Qty: 10 0RF Rx Instructions: Partial Fill upon patient request. tamsulosin [Flomax] 0.4 mg capsule 0.4 mg PO BEDTIME Qty: 6 0RF prednisone 20 mg tablet 20 mg PO BID Qty: 10 0RF Print Language: Divehi
[2024-01-14 23:36] VITALS: BP 135/84; PULSE 59; RESP 16; TEMP 37.1; O2SAT 95
[2024-01-14 23:39] VITALS: BP 135/84; PULSE 59; RESP 16; TEMP 37.1; O2SAT 95
== END 2024-01-14 23:39 | disposition home or self-care (01) ==
PROVIDERS: Physician Assistant Medical; Emergency Provider Internal Medicine; PCP Internal Medicine
DX: M54.6 Pain in thoracic spine (principal); R06.02 Shortness of breath; M54.50 Low back pain, unspecified; R07.89 Other chest pain; Z79.899 Other long term (current) drug therapy; Z03.818 Encounter for observation for suspected exposure to other biological agents ruled out
CPT/HCPCS: 0241U; 36415; 71046; 80053; 83735; 84484; 85025; 85610; 85730; 93005; 96372; 99284; 99285; J1885

== ENCOUNTER → 2024-01-14 18:56 | Outpatient (BNV) | payer OTHER, SELFPAY | PROVIDERS: Emergency Provider Internal Medicine; PCP Internal Medicine; Visit Provider Internal Medicine Cardiovascular Disease | DX: R07.9 Chest pain, unspecified (principal) | CPT/HCPCS: 93010 ==

== ENCOUNTER 2024-01-22 14:23 | Outpatient (REF) | payer OTHER, SELFPAY ==
--- NOTE | ~2024-01-22 | XR_ITS ---
EXAMINATION: XR THORACIC SPINE XR LUMBAR SPINE CLINICAL INFORMATION: Back pain. COMPARISON: Chest radiograph of 01/14/2024, CT abdomen and pelvis of 12/23/2023. TECHNIQUE: 3 views of the lumbar spine, 4 views of the thoracic spine. FINDINGS: LUMBAR SPINE: Mild dextroscoliosis of the thoracolumbar spine. Facet arthritis in the lzq-un-meejh lumbar spine. Multilevel lumbar spondylosis. Blbucoul-kw-ngbbab loss of disc space height with degenerative changes at L5-S1. THORACIC SPINE: Mild dextroscoliosis of the thoracolumbar spine. Moderate multilevel degenerative changes in the thoracic spine. Degenerative changes on limited views of the ewh-az-nuzbk cervical spine. XR/XR lumbar spine 2-3V IMPRESSION: 1. Mild dextroscoliosis of the thoracolumbar spine. 2. Multilevel lumbar spondylosis is sdbjytkk-sq-voiuts at L5-S1. 3. Moderate multilevel degenerative changes in the thoracic spine. This study was presented today to January 23, 2024 for interpretation. Stat results provided at this time as requested by referring provider. Electronically signed by: aKvya Kim MD 01/23/2024 07:53 AM EST
--- NOTE | ~2024-01-22 | XR_ITS ---
EXAMINATION: XR THORACIC SPINE XR LUMBAR SPINE CLINICAL INFORMATION: Back pain. COMPARISON: Chest radiograph of 01/14/2024, CT abdomen and pelvis of 12/23/2023. TECHNIQUE: 3 views of the lumbar spine, 4 views of the thoracic spine. FINDINGS: LUMBAR SPINE: Mild dextroscoliosis of the thoracolumbar spine. Facet arthritis in the lnt-lk-rudzr lumbar spine. Multilevel lumbar spondylosis. Qxibtxrs-yp-apkjak loss of disc space height with degenerative changes at L5-S1. THORACIC SPINE: Mild dextroscoliosis of the thoracolumbar spine. Moderate multilevel degenerative changes in the thoracic spine. Degenerative changes on limited views of the lwj-nf-foqff cervical spine. XR/XR thoracic spine 3V IMPRESSION: 1. Mild dextroscoliosis of the thoracolumbar spine. 2. Multilevel lumbar spondylosis is xhokmryx-wb-ppyazb at L5-S1. 3. Moderate multilevel degenerative changes in the thoracic spine. This study was presented today to January 23, 2024 for interpretation. Stat results provided at this time as requested by referring provider. Electronically signed by: Kavya Kim MD 01/23/2024 07:53 AM [facility]
== END 2024-01-22 14:24 | disposition home or self-care (01) ==
LOC: HO.XRAY 14:23
PROVIDERS: PCP Internal Medicine; Visit Provider Internal Medicine
DX: M54.9 Dorsalgia, unspecified (principal)
CPT/HCPCS: 72072; 72100

== ENCOUNTER 2024-06-24 14:28 | Outpatient (AMB) | payer OTHER, SELFPAY ==
[2024-06-24 14:06] VITALS: BP 124/82; PULSE 72; TEMP 36.6; O2SAT 96; BMI 23.2
--- NOTE | 2024-06-24 14:06 | MHC.PC.OV ---
Vital Signs 06/24/24 14:06 Height 6 ft Weight 171 lb BMI 23.2 BP 124/82 Blood Pressure Location Lt brachial Position Sitting Pulse 72 Pulse Source Pulse Oximeter Temp 97.9 F Temp Source Axillary Pulse Oximetry (%) 96 Oxygen Delivery Method Room Air Intake Visit Reasons: Routine - see comments Wire Wheeler Required: No Accompanied by: Self / Same As Patient Allergies No Known Allergies Allergy (Verified 06/24/24 15:21) Medication List - Last Reconciled 06/24/24 by Heriberto Dorantes MD adalimumab (Humira(CF) Pen) inject two - 80 mg/0.8 mL pens on Day 1; inject one - 80 mg/0.8 mL pen on Day 15 of therapy subcut albuterol sulfate 90 mcg/actuation (Ventolin HFA) inhalation albuterol sulfate mg continuous nebulization PRN alprazolam mg PO BID PRN cyclobenzaprine 10 mg PO BEDTIME escitalopram oxalate 10 mg PO DAILY 90 days xhmgyucrtpd-bfpjhtnkw-cavozgxd 200-62.5-25 mcg (Trelegy Ellipta) inhalation DAILY hydroxyzine HCl mg PO ONCE PRN Tobacco use date assessed: 06/24/24 Dental Screening Dental Screen Date: 06/24/24 Did you have a dental visit in the last 12 months?: No Did you have a dental problem in the last 6 months where you did not have access to dental care?: No [facility] Medical History (Updated 06/24/24 @ 15:22 by Heriberto Dorantes MD) Generalized anxiety disorder Low back pain Family History (Updated 06/24/24 @ 14:57 by Sadaf Brown MA) Mother No problems noted. Father No problems noted. Social History Housing: House Patient Tobacco Use Status: Former Tobacco user e-Cigarette/Vaping Use: Former Use Substance Use Type: Marijuana service: No Current occupational status: disabled Cognitive needs: No Hearing needs: No Vision needs: Yes (rx glasses) Questionnaire PHQ-9 Over the last 2 weeks, how often have you been bothered by any of the following problems? 1. Little interest or pleasure in doing things: not at all 2. Feeling down, depressed, or hopeless: not at all 3. Trouble falling or staying asleep, or sleeping too much: not at all 4. Feeling tired or having little energy: not at all 5. Poor appetite or overeating: not at all 6. Feeling bad about yourself - or that you are a failure or have let yourself or your family down: not at all 7. Trouble concentrating on things, such as reading the newspaper or watching television: not at all 8. Moving or speaking so slowly that other people could have noticed. Or the opposite - being so fidgety or restless that you have been moving around a lot more than usual: not at all 9. Thoughts that you would be better off or of hurting yourself in some way: not at all Total score: 0 Source: Developed by Drs. Derek Watkins, Maylin Roman, Jamey Johnson and colleagues, with an educational norberto from [employer]. Thrive Questionnaire Date Thrive assessed: 06/24/24 I am a: Patient Within the past 12 months, did the food you bought not last and you didn't have the money to get more?: Never true Within the past 12 months, did you worry whether your food would run out before you got money to buy more?: Never true Do you have trouble paying for medicines?: No Do you have trouble getting transportation to medical appointments?: No Do you have trouble paying your heating and electricity bill?: No Do you have trouble taking care of your child, family member or friend?: No Do you have trouble with day-to-day activities such as bathing, preparing meals, shopping, managing finances, etc.?: No Are you currently unemployed and looking for a job?: No Are you interested in more education?: No THRIVE Score: 0 AUDIT C Alcohol Use Questionnaire (AUDIT-C) 1. How often do you have a drink containing alcohol?: Never 3. How often do you have six or more drinks on one occasion?: Never Total Score: 0 MADAY-7 AMB Questionnaire MADAY-7 Date MADAY - 7 assessed: 06/24/24 Feeling nervous, anxious, or on edge: 0 = Not at all Not being able to stop or control worryin = Not at all Worrying too much about different things: 0 = Not at all Trouble relaxin = Not at all Being so restless that it is hard to sit still: 0 = Not at all Becoming easily annoyed or irritable: 0 = Not at all Feeling afraid as if something awful might happen: 0 = Not at all Total MADAY-7 score (0-4 normal; 5-9 mild; 10-14 moderate; 15-21 severe): 0 Source: Developed by Drs. Derek Watkins, Maylin Roman, Jamey Johnson and colleagues, with an educational norberto from [employer]. Physical exam (Primary Care) Vital Signs: Last Vital Signs Temp 97.9 F 06/24/24 14:06 Pulse 72 06/24/24 14:06 BP 124/82 06/24/24 14:06 Pulse Ox 96 06/24/24 14:06 Oxygen Delivery Method Room Air 06/24/24 14:06 BMI result Body Mass Index 23.2 Tobacco/Smoking Status: Tobacco use Status Tobacco use date assessed 06/24/24 06/24/24 14:08 Patient Tobacco Use Status Former Tobacco user 06/24/24 14:59 e-Cigarette/Vaping Use Former Use 06/24/24 14:59 PHQ-9: PHQ-9 Score PHQ-9: Total score 0 06/24/24 15:01 Thrive Assessment: Date of Thrive Assessment Date Thrive assessed 06/24/24 06/24/24 14:08 Coding Level of Care Code New Pt Level 4 (21049) Complex EM visit Add On G2211 Diagnoses Generalized anxiety disorder F41.1 Low back pain M54.50 Assessment & Plan Assessment & Plan (1) Generalized anxiety disorder: Code(s): F41.1 - Generalized anxiety disorder Category: Medical Plan: Pt was encouraged to be less dependant on Anxiolytics. SSRI started. Follow up in 4 weeks. Mental health provider appt given (2) Low back pain: Code(s): M54.50 - Low back pain, unspecified Category: Medical Plan: Pt had an MRI done at [facility] and [facility]. Encouraged to see them. Declined further prescriptions of opiates. Muscle relaxants refilled. Plan History of Present Illness The patient is a 53-year-old male presenting with ongoing back pain and anxiety. The exacerbation began with nephrolithiasis on Halloween night, followed by persistent spine-related pain and muscular spasms. Imaging diagnosed a 4 mm kidney stone and noted spinal stenosis alongside scoliosis and osteoarthritis. The back pain radiates from under his left shoulder blade to the lumbar spine. He has undergone prior back surgeries in 1997 and 2001 with chronic issues persisting. Previous pain management strategies, including PT and injections, were ineffective. Frequent trips to the emergency department were dues to acute pain and the requirement for urgent care. Current management includes intermittent use of muscle relaxants like cyclobenzaprine. Anxiety manifests frequently, leading to panic attacks, managed with Xanax and hydroxyzine after issues with bupropion. With a background of bipolar disorder attempts at medication management were unsuccessful. Currently, patient expresses the desire to shift from Xanax due to concerns about dependency. Social History - Unemployed, with no work since [id number] due to disability. - Formerly worked in construction. - Reports high levels of anxiety. - Engages in limited driving, dependent on physical condition. Review of Systems - Musculoskeletal: Reports ongoing back pain, history of back surgeries, muscle spasms. - Gastrointestinal: Reports history of nephrolithiasis, occasional hospitalization for kidney stones. - Respiratory: Reports history of bulous emphysema. - Psychiatric: Reports anxiety, panic attacks; history of bipolar disorder. Physical Exam General: Cooperative and healthy appearing Nutritional Appearance: Well nourished Orientation/consciousness: Patient oriented x3 Limitations: No limitations Head: Normal to inspection General: Appearance normal, both eyes and all related structures Neck: Normal visual inspection Chest: Normal palpation of entire chest wall Respiratory: Patient reports difficulty breathing due to muscle spasms and pain wrapping around the ribcage. ormal respiratory effort Neurology: Patient oriented x3, reports severe muscle spasms and pain in the lumbar and shoulder blade areas, affecting mobility. Results - Labs and Tests: Recent MRI ordered by [facility] is conducted; awaiting results. - Diagnostics: History of imaging demonstrates 4 mm kidney stone behind bladder, spinal stenosis, scoliosis, and osteoarthritis have been documented. Plan 1. Nephrolithiasis - Continue monitoring symptoms; hydration emphasized to prevent new stones. 2. Spinal Stenosis - MRI results awaited for finalized treatment plan. 3. Scoliosis - Follow-up with orthopedics as necessary based on MRI results. 4. Osteoarthritis - NSAIDs recommended for pain relief. 5. Bulous Emphysema - Respiratory monitoring; provide education on smoke avoidance. 6. Anxiety With Panic Attacks - Begin citalopram; limit Xanax use due to risk dependency. 7. Musculoskeletal Pain - Cyclobenzaprine prescribed for spasms; evaluate physical therapy options. Discussion Notes I discussed the outlined medical conditions with the patient, focusing on the complexities of managing multi-system concerns. Engaged in a detailed conversation about the long-term management of spinal stenosis and scoliosis, reiterating the importance of the forthcoming MRI results. Reviewed potential alternatives for panic disorder management other than benzodiazepines and initiated a citalopram trial for anxiety control. Additionally, detailed the pending orthopedic consultation to redefine his musculoskeletal pain management strategy, including potential PT, due to historical ineffectiveness, and narcotic use limitations. Expressed need for routine follow-up to monitor and adjust interventions over time. Patient Instructions - Drink plenty of water to avoid additional kidney stones. - Expect contact regarding MRI results; comply with follow-up as needed. - Take one cyclobenzaprine for muscle spasms at bedtime. - Start on citalopram; reduce Xanax usage as instructed. - Be aware of signs of worsening respiratory conditions; avoid smoking. - Expect Cologuard kit for home testing. - Reach out if anxiety exacerbates or return to ER is imminent. Orders: Referrals Cologuard Test Z12.11 - Encounter for screening for malignant neoplasm of colon Psychiatry Outpatient Consultation Service F41.1 - Generalized anxiety disorder Medications: New escitalopram oxalate 10 mg PO DAILY 90 days 90 tabs 1RF cyclobenzaprine 10 mg PO BEDTIME 30 tabs 0RF Discontinued prednisone Discontinued Reason: Patient no longer taking 20 mg PO BID 10 tabs 0RF oxycodone Partial Fill upon patient request. Discontinued Reason: Patient no longer taking 5 mg PO Q6H PRN 20 tabs 0RF pain oxycodone Partial Fill upon patient request. Discontinued Reason: Patient no longer taking 5 mg PO Q8H PRN 10 tabs 0RF pain tamsulosin (Flomax) Discontinued Reason: Patient no longer taking 0.4 mg PO BEDTIME 6 caps 0RF cyclobenzaprine Discontinued Reason: Patient no longer taking 10 mg PO Q8H 20 tabs 0RF
--- OUTSIDE RECORDS SUMMARY | 2024-06-24 14:39 | XMS_ITS | Clinical Summary ---
Author Organization [facility] Address [address] [place] [address] Care Team Providers Care Wholesale Agronomist Name Role Phone Dariusz Thomas MD Primary Care Provider Allergies No known active allergies Active Problems Problem Noted Date Diagnosed Date Marijuana use 12/19/2011 Overview (02/26/2024): 7/ Depression 04/09/2010 Overview (02/26/2024): ?Bipolar per pt Tobacco use disorder 04/09/2010 Back pain 10/01/2009 Overview (02/26/2024): ASHLEY 1997. Microdiskectomy Dr. Means 2001 Miguelangel 06/23---rec injection then consider surgery---PSS. No benefit. Did not followup with surgery. Psoriasis 10/01/2009 Overview (02/26/2024): Plaques on the knees and elbows. Surgical History Surgery Date Site/Laterality Comments BACK SURGERY PROCEDURE: HISTORICAL BACK SURGERY; COMMENT: Lumbar disc Family History Medical History Relation Name Comments Seizures Brother 1 Coronary artery disease Grandparent 1 Stroke Mother Relation Name Status Comments Brother 1 Brother 2 Father Alive Grandparent 1 Grandparent 2 Mother Alive Social History Tobacco Use Types Packs/Day Years Used Date Smoking Tobacco: Every Day Cigarettes Alcohol Use Standard Drinks/Week Comments No 0 (1 standard drink = 0.6 oz pur e alcohol) Sex and Gender Information Value Date Recorded Sex Assigned at Not on file Legal Sex Male 11:46 AM EST Gender Identity Not on file Sexual Orientation Not on file Obstetrics History Plan of Treatment Health Maintenance Due Date Last Done Comments DTaP,Tdap,and Td Vaccines (1 - Tdap) 1989 Hepatitis B Vaccines (1 of 3 - 19+ 3-dose series) 1989 Pneumococcal Vaccine: 50+ Ye ars (1 of 2 - PCV) 1989 Pneumococcal Vaccine: Pediat rics (0 to 5 Years) and At-Risk Patients (6 to 64 Years) (1 of 2 - PCV) 1989 Zoster Vaccines (1 of 2) 2020 Cholesterol Screening (Lipid Panel) 01/11/2022 Colorectal Cancer Screening: Colonoscopy 01/11/2022 Depression Screening 01/11/2022 HIV Screening 01/11/2022 Hepatitis C Screening 01/11/2022 Social Influencers of Health Screening 01/11/2022 COVID-19 Vaccine ( - 2023-2 5 season) 2023 Influenza Vaccine (Season Ended) 2024 HIB Vaccines Aged Out No longer eligi ble based on patient's age to complete this topic HPV Vaccines Aged Out No longer eligi ble based on patient's age to complete this topic Hepatitis A Vaccines Aged Out No long er eligible based on patient's age to complete this topic IPV Vaccines Aged Out No longer eligi ble based on patient's age to complete this topic MMR Vaccines Aged Out No longer eligi ble based on patient's age to complete this topic Meningococcal ACWY Vaccine Aged Out N o longer eligible based on patient's age to complete this topic Meningococcal B Vaccine Aged Out No l onger eligible based on patient's age to complete this topic RSV Immunization Patients Un barber 20 months Aged Out No longer eligible b ased on patient's age to complete this topic Varicella Vaccines Aged Out No longer eligible based on patient's age to complete this topic Care Teams Wholesale Agronomist Relationship Specialty Start Date End Date Dariusz Thomas MD [address] [place] [id number] PCP - General 02/15/10
== END 2024-06-24 15:21 | disposition home or self-care (01) ==
LOC: HO.HMCHD 14:29
PROVIDERS: PCP Internal Medicine; Visit Provider Internal Medicine
DX: F41.1 Generalized anxiety disorder (principal); M54.50 Low back pain, unspecified

== ENCOUNTER → 2024-06-24 14:28 | Outpatient (BNVA) | payer OTHER, SELFPAY | PROVIDERS: PCP Internal Medicine; Visit Provider Internal Medicine | DX: F41.1 Generalized anxiety disorder (principal); M54.50 Low back pain, unspecified | CPT/HCPCS: 99202 ==

== ENCOUNTER 2024-07-24 11:45 | Outpatient (AMB) | payer OTHER, SELFPAY ==
[2024-07-24 11:04] VITALS: BP 120/76; PULSE 80; TEMP 36.6; O2SAT 96; BMI 22.9
--- NOTE | 2024-07-24 11:04 | MHC.PC.OV ---
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 Father No problems noted. Social History Housing: House Patient Tobacco Use Status: Former Tobacco user e-Cigarette/Vaping Use: Former Use Substance Use Type: Marijuana service: No Current occupational status: disabled Cognitive needs: No Hearing needs: No Vision needs: Yes (rx glasses) Questionnaire PHQ-9 Over the last 2 weeks, how often have you been bothered by any of the following problems? 1. Little interest or pleasure in doing things: not at all 2. Feeling down, depressed, or hopeless: nearly every day 3. Trouble falling or staying asleep, or sleeping too much: not at all 4. Feeling tired or having little energy: not at all 5. Poor appetite or overeating: not at all 6. Feeling bad about yourself - or that you are a failure or have let yourself or your family down: not at all 7. Trouble concentrating on things, such as reading the newspaper or watching television: not at all 8. Moving or speaking so slowly that other people could have noticed. Or the opposite - being so fidgety or restless that you have been moving around a lot more than usual: not at all 9. Thoughts that you would be better off or of hurting yourself in some way: not at all Total score: 3 Source: Developed by Drs. Derek Watkins, Maylin Roman, Jamey Johnson and colleagues, with an educational norberto from [employer]. Thrive Questionnaire Date Thrive assessed: 07/24/24 I am a: Patient Within the past 12 months, did the food you bought not last and you didn't have the money to get more?: Never true Within the past 12 months, did you worry whether your food would run out before you got money to buy more?: Never true Do you have trouble paying for medicines?: No Do you have trouble getting transportation to medical appointments?: No Do you have trouble paying your heating and electricity bill?: No Do you have trouble taking care of your child, family member or friend?: No Do you have trouble with day-to-day activities such as bathing, preparing meals, shopping, managing finances, etc.?: No Are you currently unemployed and looking for a job?: No Are you interested in more education?: No THRIVE Score: 0 AUDIT C Alcohol Use Questionnaire (AUDIT-C) 1. How often do you have a drink containing alcohol?: Never 3. How often do you have six or more drinks on one occasion?: Never Total Score: 0 MADAY-7 AMB Questionnaire MADAY-7 Date MADAY - 7 assessed: 07/24/24 Feeling nervous, anxious, or on edge: 3 = Nearly every day Not being able to stop or control worryin = Not at all Worrying too much about different things: 0 = Not at all Trouble relaxin = Not at all Being so restless that it is hard to sit still: 0 = Not at all Becoming easily annoyed or irritable: 0 = Not at all Feeling afraid as if something awful might happen: 0 = Not at all Total MADAY-7 score (0-4 normal; 5-9 mild; 10-14 moderate; 15-21 severe): 3 Source: Developed by Drs. Derek Watkins, Jamey Canseco and colleagues, with an educational norberto from [employer]. Physical exam (Primary Care) Vital Signs: Last Vital Signs Temp 97.8 F 07/24/24 11:04 Pulse 80 07/24/24 11:04 BP 120/76 07/24/24 11:04 Pulse Ox 96 07/24/24 11:04 Oxygen Delivery Method Room Air 07/24/24 11:04 BMI result Body Mass Index 22.9 Tobacco/Smoking Status: Tobacco use Status Tobacco use date assessed 07/24/24 07/24/24 11:05 Patient Tobacco Use Status Former Tobacco user 07/24/24 11:05 e-Cigarette/Vaping Use Former Use 07/24/24 11:05 PHQ-9: PHQ-9 Score PHQ-9: Total score 3 07/24/24 12:01 Thrive Assessment: Date of Thrive Assessment Date Thrive assessed 07/24/24 07/24/24 11:05 Coding Level of Care Code Est Pt Level 4 (32427) Complex EM visit Add On G2211 Diagnoses Generalized anxiety disorder F41.1 Low back pain M54.50 Chronic headaches R51.9; G89.29 Assessment & Plan Assessment & Plan (1) Generalized anxiety disorder: Code(s): F41.1 - Generalized anxiety disorder Category: Medical Plan: Encouraged to start SSRI's. Continue the anxiolytics till psych appt (2) Low back pain: Code(s): M54.50 - Low back pain, unspecified Category: Medical Plan: Patient declines physical therapy. I counselled against starting opiate medications (3) Chronic headaches: Code(s): R51.9 - Headache, unspecified; G89.29 - Other chronic pain Plan: CT scan of the head ordered. Plan History of Present Illness - The patient is a 53-year-old male presenting with anxiety and panic disorder. He has been reluctant to begin citalopram, instead taking alprazolam 0.5 mg as needed, out of fear of inducing panic attacks and hospitalization. - Visual disturbances include binocular migraines, bright spots, and episodes of double vision, leading to elevated anxiety and the recommendation of a CAT scan for stroke evaluation, despite normal findings upon a recent eye examination. - Chronic middle back pain due to two herniated discs has been diagnosed but remains inadequately managed due to a lack of response to previous treatments such as gabapentin, which the patient is hesitant to take given concerns about his COPD and emphysema. Social History - No specific social determinants of health were discussed in the conversation. Review of Systems - Nervous System: Reports anxiety and panic attacks. - Visual System: Reports binocular migraines, bright spots, and double vision. - Musculoskeletal: Reports middle back pain. - Respiratory: Reports ongoing issues associated with emphysema and COPD. Physical Exam General: Cooperative and healthy appearing Nutritional Appearance: Well nourished Orientation/consciousness: Patient oriented x3 Limitations: No limitations Head: Normal to inspection General: Appearance normal, both eyes and all related structures Neck: Normal visual inspection Chest: Normal palpation of entire chest wall Respiratory: Patient reports concerns about breathing, but no specific changes noted during the exam. ormal respiratory effort Neurology: Patient oriented x3, but reports experiencing bright spots and double vision, prompting a stroke workup with a CAT scan. Results - Imaging: MRI indicating two herniated intervertebral discs; recommendation for a CAT scan was considered for further neurological evaluation for stroke Plan 1. Anxiety And Panic Disorder - Re-assess the response to alprazolam, exploring gradual citalopram introduction. - Plan for regular follow-ups to ensure anxiety symptoms remain controlled. 2. Binocular Migraine And Double Vision - Arrange a CAT scan for neurological assessment and engage in ongoing monitoring of visual symptoms. 3. Herniated Intervertebral Disc - Continue exploring pain management options, emphasizing physical therapy and reconsideration of gabapentin. 4. Emphysema & Copd - Maintain current respiratory treatment with careful adjustment considering potential drug interactions. Discussion Notes During the discussion, I reviewed the necessity for addressing persistent anxiety and panic disorder symptoms. The patient is currently managing with alprazolam but fears dependency; thus, I elaborated on the benefits of citalopram for long-term management. Furthermore, we discussed the optics of migraine-related visual symptoms, emphasizing the importance of a CAT scan to rule out emergent causes of his reported double vision and bright spots. Pain management for herniated discs presented an area of challenge due to respiratory comorbidities; however, I encouraged considering gabapentin within safe parameters and highlighted physical therapy as a viable option. Given the patient?s emphysema and COPD, no drastic modifications are to be made to his pulmonary regimen without further evaluations. Patient Instructions - Consider starting prescribed citalopram as adjunct therapy for managing panic disorder. - Continue taking alprazolam as prescribed, with adherence to prescribed dosages. - Schedule and complete the recommended CAT scan for further evaluation of visual symptoms. - Evaluate options for pain management, possibly reconsider physical therapy as an alternative. - Maintain current COPD and emphysema management strategies and report changes in symptoms.
--- OUTSIDE RECORDS SUMMARY | 2024-07-24 13:29 | XMS_ITS | Clinical Summary ---
Author Organization [facility] Address [address] [place] [address] Care Team Providers Care Head Of Ethics And Compliance Name Role Phone Dariusz Thomas MD Primary Care Provider [phone] Allergies No known active allergies Active Problems Problem Noted Date Diagnosed Date Marijuana use 12/19/2011 Overview (02/26/2024): 7/12 Depression 04/09/2010 Overview (02/26/2024): ?Bipolar per pt [...] on file Obstetrics History Plan of Treatment Upcoming Encounters Date Type Department Care Team ([facility] Contact Info) Description 07/30/2024 1:45 PM EDT Office Visit Pulmonolgy - [place] [facility] [address] [place] [address] Hubert Patton MD [address] [address] Health Maintenance Due Date Last Done Comments [...] Influencers of Health Screening 01/11/2022 COVID-19 Vaccine (2023-2 5 season) 2023 Influenza Vaccine (Season Ended) [...] on patient's age to complete this topic Insurance [place] [address] PLAN Care Teams Head Of Ethics And Compliance Relationship Specialty Start Date End Date Dariusz Thomas MD [address] [place] [id number] PCP - General 02/15/10
== END 2024-07-24 12:30 | disposition home or self-care (01) ==
LOC: HO.HMCHD 11:46
PROVIDERS: PCP Internal Medicine; Visit Provider Internal Medicine
DX: F41.1 Generalized anxiety disorder (principal); M54.50 Low back pain, unspecified; R51.9 Headache, unspecified; G89.29 Other chronic pain

== ENCOUNTER → 2024-07-24 11:45 | Outpatient (BNVA) | payer OTHER, SELFPAY | PROVIDERS: PCP Internal Medicine; Visit Provider Internal Medicine | DX: F41.1 Generalized anxiety disorder (principal); M54.50 Low back pain, unspecified; G89.29 Other chronic pain; G43.909 Migraine, unspecified, not intractable, without status migrainosus; J43.9 Emphysema, unspecified | CPT/HCPCS: 99212 ==

== ENCOUNTER 2024-11-05 13:35 | Outpatient (AMB) | payer OTHER, SELFPAY ==
--- NOTE | 2024-11-05 13:37 | MHC.PC.OV ---
Vital Signs 11/05/24 13:46 Height 6 ft Weight 170 lb BMI 23.1 BP 108/78 Blood Pressure Location Rt brachial Position Sitting Respiration 18 Pulse 78 Pulse Source Pulse Oximeter Temp 98.1 F Temp Source Temporal Artery Scan Pulse Oximetry (%) 95 Oxygen Delivery Method Room Air Intake Visit Reasons: 3 month f/u Veneer Layer Required: No Accompanied by: spouse-Glenis Allergies No Known Allergies Allergy (Verified 11/05/24 13:37) Medication List - Last Reconciled 11/05/24 by Amarjit Hutton MD albuterol sulfate 90 mcg/actuation (Ventolin HFA) inhalation albuterol sulfate mg continuous nebulization PRN alprazolam 0.5 mg PO TID PRN 5 days cyclobenzaprine 10 mg PO BEDTIME PRN nnddvisxzbg-ovhhoogxs-kdgafmxm 200-62.5-25 mcg (Trelegy Ellipta) inhalation DAILY hydroxyzine HCl 50 mg PO Q6-8H PRN ibuprofen 800 mg PO TID Tobacco use date assessed: 07/24/24 Dental Screening Dental Screen Date: 11/05/24 Did you have a dental visit in the last 12 months?: No Did you have a dental problem in the last 6 months where you did not have access to dental care?: Yes Was dental information given to patient?: Patient has dentist HPI HPI Comments History of Present Illness Details The patient is a 53-year-old male presenting with chronic back pain as his primary concern. He reports that the back pain began in December of the previous year, resulting from two ruptured discs in his spine, confirmed by MRI in July. The patient emphasizes that the pain is localized to the middle back, causing daily chronic pain that has persisted for approximately 10 to 11 months. 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 No alleviating factors are chiefly noted, but he expresses skepticism about the potential efficacy of therapy, having had previous back surgeries in his 20s without significant relief. Additionally, he expresses anxiety about medication side effects, particularly concerning gabapentin, due to the possibility of respiratory complications given his underlying COPD. He discloses a fear of potential dementia, exacerbated by recent familial experience with the condition, although he acknowledges reassurance regarding gabapentin's safety for COPD when monitored appropriately. For psoriasis, the patient reports a history of using Humira, which he discontinued due to the pandemic and subsequent difficulties in maintaining treatment. This has resulted in a resurgence of symptoms, causing extensive dermatological discomfort and self-consciousness due to his skin's appearance. Medical History: - Chronic Obstructive Pulmonary Disease (COPD), controlled. - Emphysema and history of episodic emergency room visits though never hospitalized. - History of depression managed with Bupropion in the past. - Chronic back pain with ruptured discs evident via MRI. - Psoriasis with previous treatment involving Humira. - Anxiety with current use of Alprazolam. - Previously treated for anxiety with Buspirone. Surgical History: - Two lower back surgeries in the . Medications: - Albuterol inhaler, for COPD, as needed. - Trilogy inhaler, for COPD, daily. - Alprazolam, for anxiety, as needed up to 3 times daily. - Hydroxyzine, as an alternative to alprazolam for anxiety control. - Humira, historically used for psoriasis (currently discontinued). Family History: - Father with dementia (recently ). - Mother with dementia. Diagnostic Results: - MRI indicating two ruptured intervertebral discs, performed in July. - Psoriasis presenting as part of physical examination discussions. 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 - Reports staying active is challenging, with a tendency toward sedentary behavior due to physical limitations. - Expresses a desire to remain active post-pain management to prevent further health declines. - No current smoking; avoids smoke and irritants diligently. - Nutritionally, indicates he might not be consuming adequate energy. [facility] Medical History (Updated 11/05/24 @ 14:26 by Amarjit Hutton MD) Psoriasis COPD (chronic obstructive pulmonary disease) Encounter for colorectal cancer screening using Cologuard test (07/14/24) Generalized anxiety disorder Low back pain Family History Mother No problems noted. Father No problems noted. Social History Housing: House Patient Tobacco Use Status: Former Tobacco user e-Cigarette/Vaping Use: Former Use Substance Use Type: Marijuana service: No Current occupational status: disabled Cognitive needs: No Hearing needs: No Vision needs: Yes (rx glasses) Questionnaire Thrive Questionnaire Date Thrive assessed: 07/24/24 AUDIT C Alcohol Use Questionnaire (AUDIT-C) 1. How often do you have a drink containing alcohol?: Never 3. How often do you have six or more drinks on one occasion?: Never Total Score: 0 MADAY-7 AMB Questionnaire MADAY-7 Date MADAY - 7 assessed: 07/24/24 Source: Developed by Drs. Derek Watkins, Maylin Roman, Jamey Johnson and colleagues, with an educational norberto from [employer]. Review of Systems Const Details: - Musculoskeletal: Reports chronic back pain secondary to ruptured intervertebral discs. - Respiratory: Denies currently using home oxygen but has restricted pulmonary function due to COPD. - Integumentary: Reports widespread psoriasis. - Psychiatric: Reports anxiety and expressed fear of progressing side effects from medications. - Constitutional: Denies systemic and severe fatigue unrelated to activity. All systems reviewed & are unremarkable except as reviewed in HPI and above Physical exam (Primary Care) Vital Signs: Last Vital Signs Temp 98.1 F 11/05/24 13:46 Pulse 78 11/05/24 13:46 Resp 18 11/05/24 13:46 BP 108/78 11/05/24 13:46 Pulse Ox 95 11/05/24 13:46 Oxygen Delivery Method Room Air 11/05/24 13:46 BMI result Body Mass Index 23.1 Tobacco/Smoking Status: Tobacco use Status Tobacco use date assessed 07/24/24 11/05/24 13:50 Patient Tobacco Use Status Former Tobacco user 11/05/24 13:50 e-Cigarette/Vaping Use Former Use 11/05/24 13:50 Thrive Assessment: Date of Thrive Assessment Date Thrive assessed 07/24/24 11/05/24 13:50 Const Other: General: +Alert and oriented, Well nourished, No acute distress. Eye: Pupils are equal, round and reactive to light, Intact accommodation, Extraocular movements are intact, Normal conjunctiva, Vision unchanged. HENT: Normocephalic, Atraumatic, Tympanic membranes are clear, Normal hearing, Oral mucosa is moist, No pharyngeal erythema, Ear canals patent. Respiratory: Lungs CTA bilaterally, No wheeze, Respirations are non-labored. Cardiovascular: Regular rate, Regular rhythm, S1 auscultated, S2 auscultated, No murmur, Good pulses equal in all extremities, Normal peripheral perfusion, No edema. Gastrointestinal: Soft, Non-tender, Non-distended, Normal bowel sounds, No organomegaly. Musculoskeletal: Normal range of motion, Normal strength, No tenderness, No swelling, No deformity, Normal gait. Integumentary: Warm, Dry, [place], Intact. Neurologic: Alert, Oriented, Normal sensory, Normal motor function, No focal defects, Cranial Nerves II-XII are grossly intact, Normal deep tendon reflexes. Psychiatric: Cooperative, Appropriate mood & affect, Normal judgment. Coding Level of Care Code Est Pt Level 4 (39571) Complex EM visit Add On G2211 Diagnoses Chronic bilateral low back pain with bilateral sciatica M54.42; M54.41; G89.29 Chronicity: chronic Back pain laterality: bilateral Sciatica presence: with sciatica Sciatica laterality: bilateral sciatica Generalized anxiety disorder F41.1 Simple chronic bronchitis J41.0 COPD type: chronic bronchitis Chronic bronchitis type: simple Psoriasis L40.9 Time Spent (min) 50 Assessment & Plan Assessment & Plan (1) Low back pain: Comment: - Implement gabapentin 100 mg three times a day, monitor for effectiveness and side effects. - Engage patient in discussing gradual activity involvement, encouraging daily movement and moderate exercise. Code(s): M54.50 - Low back pain, unspecified Category: Medical Qualifiers: Chronicity: chronic Back pain laterality: bilateral Sciatica presence: with sciatica Sciatica laterality: bilateral sciatica Qualified Code(s): M54.42 - Lumbago with sciatica, left side; M54.41 - Lumbago with sciatica, right side; G89.29 - Other chronic pain (2) Generalized anxiety disorder: Comment: - Prescribe Buspirone 5 mg three times a day to phase into anxiety management. - Discuss concerns over alprazolam and recommend reducing usage where feasible yet maintaining support with hydroxyzine intermittently. Code(s): F41.1 - Generalized anxiety disorder Category: Medical (3) COPD (chronic obstructive pulmonary disease): Comment: - Continue current inhalers (albuterol, Trilogy) for symptom control. - Affirm resumption or adjustment of pulmonary reassessment intervals with a lung specialist, possibly considering the lung transplant discussion. Code(s): J44.9 - Chronic obstructive pulmonary disease, unspecified Category: Medical Qualifiers: COPD type: chronic bronchitis Chronic bronchitis type: simple Qualified Code(s): J41.0 - Simple chronic bronchitis (4) Psoriasis: Comment: - Reassess need for biological treatments, consider appropriateness of newer medications/treatment regimens as patient reports prior ineffectiveness of current or past therapies. - Continued follow up with dermatology Code(s): L40.9 - Psoriasis, unspecified Category: Medical Plan: Health maintenance: - Review respiratory therapy adherence with lung specialist, including ongoing suitability for transplant candidacy. - Focus on lifestyle modifications, find workable routine activity targets considering back pain. - Psoriasis monitoring to maintain risks related to systemic medications. Patient was informed and verbally consented to the use of an ambient scribe for clinic note documentation during this visit. Plan I addressed the patient?s multiple chronic health issues, focusing initially on his chronic back pain, which significantly impacts his quality of life. Considering his skepticism about gabapentin, I reassured him of the low-risk profile and elaborated the mechanism of action targeting nerve pain. Emphasis was placed on balancing anxiolytic management, where Buspirone would supplant alprazolam with potential for long-term benefit and lesser impact on respiratory function. I reiterated the safety of his ongoing COPD inhaler therapy while acknowledging his psoriasis treatment needs revisiting due to discontinuity during the pandemic. Regarding family history concerns, including dementia, I encouraged cognitive engagement with daily activity to allay prognostic see-sawing. His misunderstandings around gabapentin's respiratory involvement and juxtaposed anxiety triggers necessitated realignment with evidence-based reassurance. We discussed the necessity of adherence to his regimen and earnestness in health upkeep via diagnostic follow-ups, especially with the impending re-engagement of specialist care. Overall, venture solutions to optimize a treatment schema with synergistic health patchwork orientation remain cardinal. Orders: Orders Lipid Panel Today Amarjit Hutton MD Z76.89 - Persons encountering health services in other specified circumstances TSH reflex Free T4 Today Amarjit Hutton MD Z76.89 - Persons encountering health services in other specified circumstances Vitamin D 25-OH Total Today Amarjit Hutton MD Z76.89 - Persons encountering health services in other specified circumstances Hepatitis A,B,C Profile Today Amarjit Hutton MD Z76.89 - Persons encountering health services in other specified circumstances HIV Ab/Ag Today Amarjit Hutton MD Z76.89 - Persons encountering health services in other specified circumstances Syphilis Screen Today Amarjit Hutton MD Z76.89 - Persons encountering health services in other specified circumstances Complete Blood Count Auto Diff Today Amarjit Hutton MD Z76.89 - Persons encountering health services in other specified circumstances Comprehensive Met. Panel Today Amarjit Hutton MD Z76.89 - Persons encountering health services in other specified circumstances Hemoglobin A1c Today Amarjit Hutton MD Z76.89 - Persons encountering health services in other specified circumstances Quantiferon TB Gold Plus 1 Today Amarjit Hutton MD Z76.89 - Persons encountering health services in other specified circumstances Referrals Psychiatry Referral Amarjit Hutton MD F41.1 - Generalized anxiety disorder Medications: New buspirone 5 mg PO TID 270 tabs 0RF 90 days Amarjit Hutton MD gabapentin 100 mg PO TID 90 caps 0RF 30 days Amarjit Hutton MD Changed From cyclobenzaprine 10 mg PO BEDTIME 30 tabs 0RF To cyclobenzaprine 10 mg PO BEDTIME PRN Heriberto Dorantes MD Patient Instructions: - Start gabapentin 100 mg three times daily for managing back pain; monitor how it affects you. - Begin Buspirone 5 mg three times each day to help manage anxiety; it could take a few weeks to feel the effect. - Use your albuterol and Trilogy inhalers as directed by your lung doctor. - Work towards being more active as your pain improves, but start gradually. - Reconnect with your clinical education assistant about psoriasis treatment options they recommend. - Contact the office if you experience breathing issues, side effects from your medication, or new symptoms arise. - Schedule recommended follow-up appointments to assess medication effects and discuss further treatment interventions.
[2024-11-05 13:46] VITALS: BP 108/78; PULSE 78; RESP 18; TEMP 36.7; O2SAT 95; BMI 23.1
--- OUTSIDE RECORDS SUMMARY | 2024-11-05 16:43 | XMS_ITS | Patient Health Record ---
Author Organization [facility] Address [address] [place] [address] Care Team Providers Care Activities Therapist Name Role Phone LOBO TUCKER Primary Care Provider Allergies No Known Allergies Reason For Referral No Information Medications Medication SIG (Take, Route, Frequency, Duration) Notes Start Date End Date Status buPROPion HCl ER (SR) 150 MG TAKE 1 TABLET BY MOUTH TWICE A DAY; Duration: 30 Active Breo Ellipta 200-25 MCG/INH 1 puff Inhalation Once a day Active Meclizine HCl 12.5 MG 1 tablet as needed Orally twice a day; Duration: 30 days 07/15/2019 Active DULoxetine HCl 20 MG 1 capsule Orally On ce a day; Duration: 30 day(s) Not-Levi ing Nicotine 14 MG/24HR 1 patch to skin Transdermal Once a day; Duration: 30 day(s) Not-Taking ProAir HFA 108 (90 Base) MCG/ACT 2 puffs as needed Inhalation every 6 hrs Active Incruse Ellipta 62.5 MCG/INH 1 puff Inhalation Once a day Active Humira 10 MG/0.2ML as directed Subcutaneous Active Social History Tobacco Use: Social History Observation Description Date Details (start date - stop date) Former Smoker NA - NA Tobacco Use/Smoking Question Answer Notes Are you a former smoker Problems Problem Type SNOMED Code ICD Code Onset Dates Problem Status W/U Status Risk Notes Problem Hyperlipidemia (31471050) Hyperlipidemia, unspecified (E78.5) Active confirmed Problem Moderate recurrent major depression (53724982) Major depressive disorder, recurrent, moderate (F33.1) Active confirmed Problem Chronic pain syndrome (082415276) Chronic pain syndrome (G89.4) Active confirmed Problem Psoriasis (7109426) Psoriasis, unspecified (L40.9) Active confirmed Problem Solitary nodule of lung (649526874) Lung nodule (R91.1) Active confirmed Plan Of Treatment Pending Test Test Name Order Date Vitamin B12 03/15/2018 Vitamin D, 1,25 Dihydroxy 03/15/2018 TSH+Free T4 03/15/2018 Comp. Metabolic Panel (14) 03/15/2018 CBC 03/15/2018 EKG 11/13/2017 CBC (COMPLETE BLOOD COUNT) 06/22/2017 COMPREHENSIVE METABOLIC PANEL 06/22/2017 HEMOGLOBIN A1C 06/22/2017 LIPID PANEL 06/22/2017 LYME DISEASE WESTERN BLOT 03/15/2018 URINALYSIS, COMPLETE 06/22/2017 CT Chest w/o Contrast 11/05/2018 UC XR Chest 4+ Views Complete 03/15/2018 QUANTIFERON TB GOLD PLUS 03/15/2018 Insurance Providers Payer Name Payer Address Payer Phone Subscriber Number Group Number Insured Name Patient Relationship to Insured Coverage Start Date Coverage End Date [employer] [address] [address] [place] [address] [id number] Kam Campos Self - patient is the insured Medical (General) History Medical History History ICD Code emphysema chronic obstructive pulmonary disease (C OPD) Surgical History Surgery Date(Month/Year) Back surgery shoulder surgery
--- OUTSIDE RECORDS SUMMARY | 2024-11-05 16:43 | XMS_ITS | Encounter Summary ---
Author Organization [facility] Address [address] [place] [phone] Phone Care Team Providers Care Farmer General Name Role Phone Unknown, Unknown Primary Care Provider Jane Oh, Zulma Pearl RN Unavailable CE [email or web address] Vignesh Ellington MD Primary Care Provider Encounter Details Date Type Department Care Team (Latest Contact Info) Description 02/24/2017 Ancillary [facility] [address] [place] [phone] Mina Cotto MD [address] [place] [phone] [email or web address] Syncope, unspecified syncope type; Dizziness and giddiness Social History Tobacco Use Types Packs/Day Years Used Date Smoking Tobacco: Never Assessed Sex and Gender Information Value Date Recorded Sex Assigned at Not on file Legal Sex Male 3:54 PM EST Gender Identity Not on file Sexual Orientation Not on file documented as of this encounter Plan of Treatment Not on file documented as of this encounter Results * Holter Monitor 48 Hours (02/24/2017 12:24 PM EST) Anatomical Region Laterality Modality Heart Other Narrative 02/24/2017 1:22 PM EST 48 hour monitor: Patient reported symptoms of a light and disease feeling, and also feeling dizzy and off-balance. Baseline rhythm is sinus with a minimum heart rate 52 maximum 133 average 75 bpm. Rare PVCs present. PACs and atrial ectopy present, maximum of 4 beat run of atrial tachycardia at 175 bpm. Patient events and dizzy feelings occurred during sinus rhythm. Impression: Normal 48 hour monitor. Symptoms of dizziness during sinus rhythm. us Mina Cotto MD [facility] ORDERABLES F inal Result documented in this encounter Visit Diagnoses Diagnosis Syncope, unspecified syncope type Dizziness and giddiness Syncope, unspecified syncope type Dizziness and giddiness documented in this encounter Care Teams Farmer General Relationship Specialty Start Date End Date Unknown, Unknown, MD PCP - General 02/23/17 04/10/24 Vignesh Ellington MD [address] [place] [address] Dr WEBBER [address] [place] [phone] PCP - General Internal Medicine 04/11/24 Zulma Oh, SHERLYN [address] [place] [phone] [email or web address] Registered Nurse 11/06/20 documented as of this encounter Additional Source Comments The information contained in this document represents components of the legal health record. It is not the complete legal health record.[facility]
--- OUTSIDE RECORDS SUMMARY | 2024-11-05 16:43 | XMS_ITS | Encounter Summary ---
Author Organization [facility] Address [address] [place] [address] Phone Care Team Providers Care [facility] Lab Technician Name Role Phone Unknown, Unknown Primary Care Provider Zulma Valentine RN Unavailable CE [email or web address] Vignesh Ellington MD Primary Care Provider Encounter Details Date Type Department Care Team (Late st Contact Info) Description 02/24/2017 Ancillary [facility] [address] [place] [address] [address] Floor, [address] [place] [address] Mina Cotto MD [address] [place] [phone] Social History Tobacco Use Types Packs/Day Years Used Date Smoking Tobacco: Never Assessed Sex and Gender Information Value Date Recorded Sex Assigned at Not on file Legal Sex Male 3:54 PM EST Gender Identity Not on file Sexual Orientation Not on file documented as of this encounter Plan of Treatment Not on file documented as of this encounter Visit Diagnoses Not on filedocumented in this encounter Care Teams [facility] Lab Technician Relationship Specialty Start Date End Date Unknown, Unknown, PCP - General 02/23/17 04/10/24 Vignesh Ellington MD [address] [place] [address] [place] [address] PCP - General Internal Medicine 04/11/24 Zulma Oh RN [address] [place] [phone] [email or web address] Registered Nurse 11/06/20 documented as of this encounter Additional Source Comments The information contained in this document represents components of the legal health record. It is not the complete legal health record.[facility]
--- OUTSIDE RECORDS SUMMARY | 2024-11-05 16:43 | XMS_ITS | Clinical Summary ---
Author Organization [facility] Address [address] [place] [address] Phone Care Team Providers Care Adult Basic Education Teacher Name Role Phone Zulma Hameed RN Unavailable [email or web address] Vignesh Ellington MD Primary Care Provider Allergies No known active allergies Medications TRELEGY ELLIPTA 200-62.5-25 mcg inhaler 1 puff 2 (two) times a day. 5 Active albuterol 2.5 mg /3 mL (0.083 %) nebulizer solution TAKE 1 VIAL USING NEBULIZER FOUR TIMES A DAY NEEDED 4 Active umeclidinium (INCRUSE ELLIPTA) 62.5 mcg/actuation inhalation Inhale 62.5 mcg into the lungs. Active budesonide-form oterol 80-4.5 mcg/actuation inhaler Inhale 2 puffs into the lungs 2 (two) times a day. Active nicotine (NICODERM CQ) 14 mg/[address] 1 patch onto the skin daily. Active Immunizations Immunization Administration Dates Next Due COVID-19 (Pre-12/05) Moderna Vaccine, mRNA, PF 0 06/11/2020 Social History Tobacco Use Types Packs/Day Years Used Date Smoking Tobacco: Former Cigarettes Tobacco Cessation:Counseling Given: Not Answered Education Answer Date Recorded Are you interested in more education? Not on lucita e 06/10/2022 Are you concerned about learning? Not on file 06/10/2022 No 06/10/2022 No 06/10/2022 Digital Access Answer Date Recorded No 07/09/2022 No 07/09/2022 Reliable internet access at home? Not on file 07/09/2022 Device with a working camera? Not on file Sex and Gender Information Value Date Recorded Sex Assigned at Not on file Legal Sex Male 3:54 PM EST Gender Identity Not on file Sexual Orientation Not on file Last Filed Vital Signs Vital Sign Reading Time Taken Comments Blood Pressure - - Pulse - - Temperature - - Respiratory Rate - - Oxygen Saturation - - Inhaled Oxygen Concentration - - Weight 78.9 kg (174 lb) 04/12/2024 11:47 AM EST Height 182 cm (5' 11.65 ) 04/12/2024 11:47 AM ES T Body Mass Index 23.83 04/12/2024 11:47 AM EST Plan of Treatment Health Maintenance Due Date Last Done Comments Adult Td,Tdap Booster 1970 LIPID PANEL 1970 DEPRESSION SCREENING 1982 SMOKING Hx and SMOKELESS TOB ACCO SCREENING 12/29/1983 HEPATITIS C SCREENING 1988 HIV ONE-TIME SCREENING (18-6 5 YEARS) 1988 COLOGUARD 12/29/2015 COLONOSCOPY 12/29/2015 COLORECTAL CANCER SCREENING 12/29/2015 FIT TEST 12/29/2015 FOBT 12/29/2015 SIGMOIDOSCOPY 12/29/2015 VIRTUAL COLONOSCOPY 12/29/2015 PNEUMOCOCCAL VACCINES (50+ y ears) (1 of 1 - PCV) 2020 ZOSTER VACCINES (1 of 2) 2020 INFLUENZA VACCINE (#1) 2024 COVID-19 VACCINE (2 - 2024-2 6 season) 2024 06/11/2020 HEPATITIS A VACCINES Aged Out No long er eligible based on patient's age to complete this topic HIB VACCINES Aged Out No longer eligi ble based on patient's age to complete this topic MENINGOCOCCAL VACCINES (ACWY) Aged Out No longer eligible based on patient's age to complete this topic MENINGOCOCCAL VACCINES (B) Aged Out N o longer eligible based on patient's age to complete this topic Medical Devices Not on file Insurance [facility] [place] [address] [place] [address] [employer] [address] [place] [address] [facility] [place] [address] [address] [facility] [place] [address] [place] [address] [facility] Care Teams Adult Basic Education Teacher Relationship Specialty Start Date End Date Vignesh Ellington MD [address] [place] [address] [place] [address] PCP - General Internal Medicine 04/11/24 Zulma Hameed, SHERLYN [address] [place] [id number] [email or web address] Registered Nurse 11/06/20 Additional Source Comments The information contained in this document represents components of the legal health record. It is not the complete legal health record.[facility]
--- OUTSIDE RECORDS SUMMARY | 2024-11-05 16:43 | XMS_ITS | Clinical Summary ---
Author Organization [facility] Address [address] [place] [phone] Phone Care Team Providers Care Sorting Cows Worker Name Role Phone Dariusz Thomas MD Primary Care Provider [phone] Allergies No known active allergies Medications Trelegy Ellipta 200-62.5-25 mcg inhaler Inhale 1 puff (200 mcg total) by mouth 1 (one) time each day. 1 each 5 Active Trelegy Ellipta 200-62.5-25 mcg inhaler Inhale 1 puff (200 mcg total) by mouth 1 (one) time each day. 5 10/22/19 25 Discontinu ed(Reorder ) Active Problems Problem Noted Date Diagnosed Date [...] ars (1 of 2 - PCV) 1989 Zoster Vaccines (1 of 2) 2020 Cholesterol Screening (Lipid Panel) 01/11/2022 Colorectal Cancer Screening: Colonoscopy 01/11/2022 HIV Screening 01/11/2022 Hepatitis C Screening 01/11/2022 Social Influencers of Health Screening 01/11/2022 Depression Screening 02/14/2024 COVID-19 Vaccine ( - 2023-2 5 season) 2024 Influenza Vaccine (#1) 2024 HIB Vaccines Aged Out No longer [...] patient's age to complete this topic Insurance [facility] [place] [address] Care Teams Sorting Cows Worker Relationship Specialty Start Date End Date Dariusz Thomas MD [address] [place] [id number] PCP - General 02/15/10
== END 2024-11-05 14:27 | disposition home or self-care (01) ==
PROVIDERS: PCP Student in an Organized Health Care Education/Training Program; Visit Provider Student in an Organized Health Care Education/Training Program
DX: M54.42 Lumbago with sciatica, left side (principal); M54.41 Lumbago with sciatica, right side; G89.29 Other chronic pain; F41.1 Generalized anxiety disorder; J41.0 Simple chronic bronchitis; L40.9 Psoriasis, unspecified

== ENCOUNTER 2024-11-05 13:35 | Outpatient (REF) | payer OTHER, SELFPAY ==
[2024-11-05 14:57] LABS: MANUAL DIFF FLAG NO
[2024-11-05 15:16] LABS: Hematocrit 48.8 % (42.0-52.0); Hemoglobin 16.4 g/dl (14.0-18.0); Imm Gran Abs Auto 0.03 X10*3/uL (0.00-0.03); Imm Gran Pct Auto 0.4 % (0.0-0.4); Lymphocytes Absolute Auto 1.8 X10*3/uL (1.2-4.9); Mean Corpuscular HGB Conc 33.6 g/dl (31.0-36.0); Mean Corpuscular Hemoglobin 30.7 pg (27.0-33.0); Mean Corpuscular Volume 91.4 fL (80.0-98.0); NRBC Abs Auto 0.000 X10*3/uL (0.0-0.012); NRBC Pct Auto 0.0 /100WBC (0.0-0.2); Platelet Count 241 X10*3/uL (160-400); Red Blood Count 5.34 X10*6/uL (4.60-5.80); White Blood Count 7.6 X10*3/uL (4.8-10.8)
[2024-11-05 15:48] LABS: Alanine Aminotransferase 29 U/L (0-40); Albumin Level 4.6 g/dL (3.5-5.0); Alkaline Phosphatase 69 U/L (39-117); Anion Gap 9 (12-20); Aspartate Amino Transferase 26 U/L (5-37); Blood Urea Nitrogen 24 mg/dL (9-16); Calcium 9.4 mg/dL (8.4-10.2); Carbon Dioxide 27 mmol/L (22-29); Chloride 109 mmol/L (96-108); Cholesterol 208 mg/dL (<200); Estimated Glomerular Filt Rate > 60; HDL Cholesterol 39 mg/dL (>40); Potassium 4.1 mmol/L (3.3-5.1); Sodium 141 mmol/L (135-145); Total Protein 7.6 g/dL (6.5-8.0); Triglycerides 65 mg/dL (<150)
[2024-11-06 09:01] LABS: HBS Num1 0.00 mIU/mL (0-7.99); HBc Num1 0.04 S/CO (0.00-0.79); HIV Num 1 0.05 S/CO (0.00-0.99); Hepatitis A Antibody IgM 0.12 Index (0-0.79); ~HepC Num1 0.08 S/CO (0.00-0.79); ~Hepatitis A Antibody IgM Nonreactive (Nonreactive); ~Hepatitis B Surface Antibody NONREACTIVE (Nonreactive); ~Hepatitis C Antibody Nonreactive (Nonreactive)
[2024-11-06 09:09] LABS: Syphilis Screen Nonreactive (Nonreactive)
[2024-11-06 09:56] LABS: HBsAGNum1 0.25 S/CO (0.00-0.99); Hepatitis B Surface Antigen Negative (Negative)
[2024-11-07 15:34] LABS: Quantiferon TB Gold Plus 1 NEGATIVE (NEGATIVE); TB Test (QFT) Mitogen -Nil 7.73 IU/mL; TB Test (QFT) Nil 0.03 IU/mL; TB Test (QFT) Plus TB1 -Nil 0.00 IU/mL; TB Test (QFT) Plus TB2 -Nil <0.00 IU/mL
== END 2024-11-05 13:36 | disposition home or self-care (01) ==
LOC: HO.LAB 13:35
PROVIDERS: PCP Student in an Organized Health Care Education/Training Program; Visit Provider Student in an Organized Health Care Education/Training Program
DX: Z76.89 Persons encountering health services in other specified circumstances (principal); M54.42 Lumbago with sciatica, left side; M54.41 Lumbago with sciatica, right side; G89.29 Other chronic pain; F41.1 Generalized anxiety disorder; J41.0 Simple chronic bronchitis; L40.9 Psoriasis, unspecified; Z79.899 Other long term (current) drug therapy
CPT/HCPCS: 36415; 80053; 80061; 82306; 83036; 84443; 85025; 86480; 86704; 86706; 86709; 86780; 86803; 87340; 87389; 99212

== ENCOUNTER 2024-12-31 13:00 | Outpatient (AMB) | payer OTHER, SELFPAY ==
--- NOTE | 2024-12-31 13:03 | A.OFFPC_ITS ---
Vital Signs 12/31/24 13:04 Height 6 ft Weight 170 lb BMI 23.1 BP 130/100 H Blood Pressure Location Lt brachial Position Sitting Respiration 20 Pulse 85 Pulse Source Pulse Oximeter Temp 98.6 F Temp Source Temporal Artery Scan Pulse Oximetry (%) 97 Oxygen Delivery Method Room Air Intake Visit Reasons: 6 WK F/U - see comments Turning Sander Operator Required: No Accompanied by: Spouse Allergies No Known Allergies Allergy (Verified 12/31/24 13:04) Tobacco use date assessed: 07/24/24 Dental Screening Dental Screen Date: 11/05/24 HPI HPI Comments History of Present Illness Details History of Present Illness The patient is a 54-year-old male presenting for management of severe middle back pain. He rates his current pain as 7 out of 10 and reports episodes of severe pain over the past weekend, during which he considered visiting the emergency room. The patient has a long-standing history of back pain, having had surgeries on his lower back in 1997 and 2001. He states he has complained of middle back pain since his teenage years, but medical focus has often been on his lower back due to pre-existing issues there. An MRI performed in July or August revealed two ruptured discs in his middle back. For the current pain, he has trialed several medications without success. He took gabapentin for three days but discontinued it due to side effects, including nausea and altered mental status described as dreaming and not realizing. He found cyclobenzaprine and hydrocodone to be ineffective for his pain, and states the hydrocodone also upset his stomach. He reports a history of using oxycodone (Percocet), prescribed by a previous doctor, which he found effective for his pain, including for past kidney stones. The patient reports having had numerous epidural injections years ago, which he states were not effective, and is therefore unwilling to try them again. He has an upcoming appointment with a painter sign maintenance on the of the and an orthopedic surgeon in February. His other medical history includes psoriasis, for which he takes Skyrizi after failing Humira and topical creams, and as-needed use of alprazolam. He denies abusing his alprazolam prescription, stating a 10-day supply lasts him almost two months, and he is careful not to mix it with pain medication. Medical History: - Chronic middle and lower back pain - Ruptured intervertebral discs, middle back - History of kidney stones - Psoriasis - History of multiple epidural steroid i njections, reported as ineffective Surgical History: - Lower back surgery in 1997 - Lower back surgery in 2001 Medications: - Alprazolam, as needed - Skyrizi for psoriasis - Past use of gabapentin, stopped due to side effects - Past use of cyclobenzaprine, reported as ineffective - Past use of hydrocodone, reported as i neffective and causing stomach upset - Past use of oxycodone, reported as eff ective - Past use of Humira Family History: - No family history was discussed. Diagnostic Results: - Tests and Diagnostics: MRI of the midd le back () reportedly showed two ruptured discs; images and report are not in the current chart. [facility] Medical History (Updated 12/31/24 @ 13:37 by Amarjit Hutton MD) Psoriasis COPD (chronic obstructive pulmonary disease) Encounter for colorectal cancer screening using Cologuard test (07/14/24) Generalized anxiety disorder Low back pain Family History Mother No problems noted. Father No problems noted. Social History Housing: House Patient Tobacco Use Status: Former Tobacco user e-Cigarette/Vaping Use: Former Use Substance Use Type: Marijuana service: No Current occupational status: disabled Cognitive needs: No Hearing needs: No Vision needs: Yes (rx glasses) Questionnaire Thrive Questionnaire Date Thrive assessed: 07/24/24 MADAY-7 AMB Questionnaire MADAY-7 Date MADAY - 7 assessed: 07/24/24 Source: Developed by Drs. Derek Watkins, Maylin Roman, Jamey Johnson and colleagues, with an educational norberto from [employer]. Review of Systems Narrative Review of Systems - Musculoskeletal: Reports severe, 7/10 pain in the middle of his back. - Neurological: Reports side effects from gabapentin including altered mental state described as dreaming and not realizing. - Gastrointestinal: Reports nausea from gabapentin and stomach pain from hydrocodone. - Dermatologic: Reports a history of psoriasis covering 90% of his body. All systems reviewed & are unremarkable except as reviewed in HPI and above Physical exam (Primary Care) Vital Signs: Last Vital Signs Temp 98.6 F 12/31/24 13:04 Pulse 85 12/31/24 13:04 Resp 20 12/31/24 13:04 BP 130/100 H 12/31/24 13:04 Pulse Ox 97 12/31/24 13:04 Oxygen Delivery Method Room Air 12/31/24 13:04 BMI result Body Mass Index 23.1 Tobacco/Smoking Status: Tobacco use Status Tobacco use date assessed 07/24/24 12/31/24 13:09 Patient Tobacco Use Status Former Tobacco user 12/31/24 13:09 e-Cigarette/Vaping Use Former Use 12/31/24 13:09 Thrive Assessment: Date of Thrive Assessment Date Thrive assessed 07/24/24 12/31/24 13:09 Narrative Not performed Coding Level of Care Code Admin Sign Off/No Billing Diagnoses Chronic bilateral low back pain with bilateral sciatica M54.42; M54.41; G89.29 Chronicity: chronic Back pain laterality: bilateral Sciatica presence: with sciatica Sciatica laterality: bilateral sciatica Assessment & Plan Assessment & Plan (1) Low back pain: Comment: - The patient presents with severe, uncontrolled pain rated 7/10 despite trials of cyclobenzaprine, hydrocodone, and gabapentin, the last of which caused intolerable side effects. (Reports using 3 days of gabapentin before stopping, 4 pills of norco before stopping) - An MRI from reportedly shows two ruptured discs. (Images not available, neither is report) - He is requesting oxycodone, citing past efficacy, but this is not being prescribed due to concerns for dependence, development of tolerance, and scope of practice limitations. - The patient is also resistant to epidural steroid injections due to prior treatment failure. - The plan is for the patient to continue with his scheduled appointment with pain management on the , where more advanced pain control modalities can be discussed. - He was instructed to obtain the actual films from his recent MRI scan to bring to his pain management appointment, and to sign a release of information so this office can also obtain them. - The importance of following a stepwise, evidence-based protocol required by insurance was discussed, including trialing injections and physical therapy before more invasive options are considered. Code(s): M54.50 - Low back pain, unspecified Category: Medical Qualifiers: Chronicity: chronic Back pain laterality: bilateral Sciatica presence: with sciatica Sciatica laterality: bilateral sciatica Qualified Code(s): M54.42 - Lumbago with sciatica, left side; M54.41 - Lumbago with sciatica, right side; G89.29 - Other chronic pain Plan: - The patient presents with severe (08/22) chronic middle back pain secondary to two ruptured intervertebral discs confirmed on a recent MRI. - He has failed conservative management with cyclobenzaprine and hydrocodone (both ineffective) and gabapentin (intolerable side effects). (Has not trialed medications long enough to for their full potential) - He is requesting oxycodone, which will not be prescribed from this office due to concerns for dependence, tolerance, and it being outside the scope of primary care practice for chronic pain management. (Did repeat his prior Doctor prescribed it to him but [facility] given in February) - The patient was counseled on the necessity of a stepwise treatment approach as mandated by insurance, which may include trying newer injection techniques despite his history of past injection failures. - The patient will proceed with his scheduled appointment with pain management on the of the month. - He was instructed to obtain the disc with his MRI images to bring to the painter sign maintenance and to sign a release of information to have the records sent to this clinic. - He will also follow up with his orthopedic surgeon in February. Plan I had a lengthy and transparent discussion with the patient regarding his severe chronic middle back pain. I acknowledged his significant pain and his frustration with prior ineffective treatments. I explained that I am not comfortable prescribing oxycodone due to its dependence potential, the risk of developing tolerance, and that managing chronic pain with such medications falls under the specialty of pain management, not primary care especially in combination with alprazolam I detailed the procedural and insurance-mandated pathways for treating chronic back pain, which require trialing and failing conservative measures like physical therapy and injections before more advanced treatments are approved. Despite his previous negative experience with injections, I explained that new methods exist and that the painter sign maintenance will likely want to discuss this option. I emphasized the critical need for him to obtain his MRI films, not just the report, for his upcoming pain management consultation to allow for proper evaluation. The patient expressed significant frustration with my refusal to prescribe oxycodone and the systematic approach required for his care, stating that he feels he is not being heard or treated. I acknowledged his feelings but reiterated the clinical and legal boundaries of my practice. The visit concluded with the patient expressing his intent to find another doctor and stormed out. He had also yelled at clinic staff last week, when informed opiates could not be prescribed over the phone. He had also stopped using buspirone and continues to use alprazolam for axniety. When discuss the concomitant use of medications, he expressed that he wasn't absuing it given scripts last him multiple months at a time. I personally do not feel conmfortably starting someone on oxycodone, espeically when they've refused to follow my recommendations of trialing gabapentin, cyclobenzaprine and busiprone and stopping it in 3 days of me prescribing it. He did become aggressive during the appointment and furthers my point about not wanting to prescribing controlled medications. Patient Instructions: - We will not prescribe oxycodone for your pain at this time. - It is very important that you contact the facility where you had your MRI and get a copy of the actual images (films), not just the written report. - Bring the MRI images with you to your pain management appointment on the of this month. - Please sign a release of information form so that we can also get a copy of your MRI images and report for our records. - Keep your scheduled appointments with the painter sign maintenance and the orthopedic surgeon in February. - At your pain management appointment, you can discuss other treatment options, including different types of injections and pain medications.
[2024-12-31 13:04] VITALS: BP 130/100; PULSE 85; RESP 20; TEMP 37; O2SAT 97; BMI 23.1
--- OUTSIDE RECORDS SUMMARY | 2025-01-01 04:31 | XMS_ITS | Clinical Summary ---
Author Organization [facility] Address [address] [place] [phone] Phone Care Team Providers Care Bottoming Room Supervisor Name Role Phone Dariusz Thomas MD Primary Care Provider [phone] Allergies No known active allergies Medications Trelegy Ellipta 200-62.5-25 mcg inhaler Inhale 1 puff (200 mcg total) by mouth 1 (one) time each day. 1 each 11 10/21/2024 Active Active Problems Problem Noted Date Diagnosed Date [...] Health Maintenance Due Date Last Done Comments Colorectal Cancer Screening: Colonoscopy 1970 DTaP,Tdap,and Td Vaccines (1 - Tdap) 1989 Hepatitis B Vaccines (1 of 3 - 19+ 3-dose series) 1989 Pneumococcal Vaccine: 50+ Ye ars (1 of 2 - PCV) 1989 Zoster Vaccines (1 of 2) 2020 Cholesterol Screening (Lipid Panel) 01/11/2022 HIV Screening 01/11/2022 Hepatitis C Screening 01/11/2022 Social Influencers of Health Screening 01/11/2022 Depression Screening 02/14/2024 COVID-19 Vaccine (1 - 2024-2 6 season) 2024 Influenza Vaccine (#1) 2024 RSV Immunization Adult Patie nts (1 - 1-dose 75+ series) 2045 HIB Vaccines Aged Out No longer eligi [...] patient's age to complete this topic Insurance [facility] Care Teams Bottoming Room Supervisor Relationship Specialty Start Date End Date Dariusz Thomas MD [address] [place] [address] PCP - General 02/15/10
--- OUTSIDE RECORDS SUMMARY | 2025-01-01 04:32 | XMS_ITS | Clinical Summary ---
Author Organization [facility] Address [address] [place] [phone] Phone Care Team Providers Care Research And Development Chemist Name Role Phone Zulma aHmeed RN Unavailable [email or web address] Vignesh Ellington MD Primary Care Provider [...] (2 - 2024-2 6 season) 2024 06/11/2020 RSV VACCINE (1 - 1-dose 75+ series) 2045 HEPATITIS A VACCINES Aged Out No long [...] topic Medical Devices Not on file [facility] [address] [place] [id number] [facility] [address] [address] [place] [address] [address] [address] [place] [address] [place] [place] [address] [employer] [facility] Care Teams Research And Development Chemist Relationship Specialty Start Date End Date Vignesh Ellington MD [address] [place] [address] [place] [address] PCP - General Internal Medicine 04/11/24 Zulma Hameed, SHERLYN [address] [place] [phone] [email or web address] Registered Nurse 11/06/20 Additional Source Comments The information contained in this document represents components of the legal health record. It is not the complete legal health record.[facility]
--- OUTSIDE RECORDS SUMMARY | 2025-01-01 04:33 | XMS_ITS | Patient Health Record ---
Author Organization [facility] Address [address] [place] [address] Care Team Providers Care Fur Coat Sewer Name Role Phone LOBO TUCKER Primary Care Provider Allergies No Known Allergies Reason For Referral No Information Medications Medication SIG (Take, Route, Frequency, Duration) Notes Start Date End Date Status buPROPion HCl ER (SR) 150 MG Tablet Extended Release 12 Hour TAKE 1 TABLET BY MOUTH TWICE A DAY; Duration: 30 Active Breo Ellipta 200-25 MCG/INH Aerosol Powder Breath Activated 1 puff Inhalation Once a day Active Meclizine HCl 12.5 MG Tablet 1 tablet as needed Orally twice a day; Duration: 30 days 07/15/2019 Active DULoxetine HCl 20 MG Capsule Delayed Release Particles 1 capsule Orally Once a day; Duration: 30 day(s) Not-Levi ing Nicotine 14 MG/24HR Patch 24 Hour 1 patch to skin Transdermal Once a day; Duration: 30 day(s) Not-Taking ProAir HFA 108 (90 Base) MCG/ACT Aerosol Solution 2 puffs as needed Inhalation every 6 hrs Active Incruse Ellipta 62.5 MCG/INH Aerosol Powder Breath Activated 1 puff Inhalation Once a day Active Humira 10 MG/0.2ML Prefilled Syringe Kit as directed Subcutaneous Active Social History Tobacco Use: Social History Observation Description Date Details (start date - stop date) Former Smoker NA - NA Social History Drugs/Alcohol: Social Info Question Answer Notes Drugs Have you used drugs other than those for medical reasons in the past 12 months? No Tobacco Use: Social Info Question Answer Notes Tobacco Use/Smoking Are you a former smoker Additional Details Category Social Info Options Details Drugs/Alcohol: Do you smoke marijuana? De nies Do you drink alcohol? No Problems Problem Type SNOMED Code ICD Code Onset Dates Problem Status W/U Status Risk Notes Problem Hyperlipidemia (60952416) Hyperlipidemia, unspecified (E78.5) Active confirmed Problem Moderate recurrent major depression (91601372) Major depressive disorder, recurrent, moderate (F33.1) Active confirmed Problem Chronic pain syndrome (736051841) Chronic pain syndrome (G89.4) Active confirmed Problem Psoriasis (7175053) Psoriasis, unspecified (L40.9) Active confirmed Problem Solitary nodule of lung (216850850) Lung nodule (R91.1) Active confirmed Plan Of [...] Coverage End Date [facility] [employer] [address] [address] [place] [address] [id number] Kam Campos Self - patient is the insured Medical (General) History Medical History History ICD Code emphysema chronic obstructive pulmonary disease (C OPD) Surgical History Surgery Date(Month/Year) Back surgery shoulder surgery
--- OUTSIDE RECORDS SUMMARY | 2025-01-01 04:33 | XMS_ITS | Encounter Summary ---
Author Organization [facility] Address [address] [place] [address] Phone Care Team Providers Care Sander Wooden Pencils Name Role Phone Unknown, Unknown Primary Care Provider Zulma Valentine RN Unavailable CE [email or web address] Vignesh Ellington MD Primary Care Provider Encounter Details Date Type Department Care Team (Late st Contact Info) Description 02/24/2017 [facility] [address] [place] [address] [address]rd Floor, [address] [place] [address] Mina Cotto MD [address] [place] [phone] Social History Tobacco Use Types Packs/Day Years [...] on filedocumented in this encounter Care Teams Sander Wooden Pencils Relationship Specialty Start Date End Date Unknown, Unknown, PCP - General 02/23/17 04/10/24 Vignesh Ellington MD [address] [place] [address] [place] [address] PCP - General Internal Medicine 04/11/24 Zulma Oh RN [address] [place] [phone] [email or web address] Registered Nurse 11/06/20 documented as of this encounter Additional Source Comments The information contained in this document represents components of the legal health record. It is not the complete legal health record.[facility]
--- OUTSIDE RECORDS SUMMARY | 2025-01-01 04:34 | XMS_ITS | Encounter Summary ---
Author Organization Formerly [facility] Address [address] [place] [phone] Phone Care Team Providers Care Orchestra Conductor Name Role Phone Unknown, Unknown Primary Care Provider Jane Oh, Zulma Pearl RN Unavailable [email or web address] Vignesh Ellington MD Primary Care Provider Encounter Details Date Type Department Care Team (Latest Contact Info) Description 02/24/2017 Ancillary [facility] [address] [place] [id number] Mina Cotto MD [address] [place] [email or web address] Syncope, unspecified syncope type; Dizziness [...] giddiness documented in this encounter Care Teams Orchestra Conductor Relationship Specialty Start Date End Date Unknown, Unknown, MD PCP - General 02/23/17 04/10/24 Vignesh Ellington MD [address] [place] [address] Dr WEBBER [address] [place] [phone] PCP - General Internal Medicine 04/11/24 Zulma Oh, SHERLYN [address] [place] [phone] [email or web address] Registered Nurse 11/06/20 documented as of this encounter Additional Source Comments The information contained in this document represents components of the legal health record. It is not the complete legal health record.Formerly [facility]
== END 2024-12-31 13:40 | disposition home or self-care (01) ==
LOC: HO.HMCHD 13:00
PROVIDERS: PCP Student in an Organized Health Care Education/Training Program; Visit Provider Student in an Organized Health Care Education/Training Program
DX: M54.42 Lumbago with sciatica, left side (principal); M54.41 Lumbago with sciatica, right side; G89.29 Other chronic pain